=== PATIENT | female | born 1965 | race Caucasian/White ===

== ENCOUNTER → 2018-09-10 | Outpatient (CLI) | payer MEDICARE ==
[~2018-09-10] MED LIST: BACL10TA PO; DIAZ-345 PO; HYDR-2890 PO; IBUP-30 PO; LEVE500T6 PO; NAPR-689 PO; OMEP20CA12 PO; PARO40TA2 PO; PARO40TA47 PO; ROPI1TAB PO; ROPI1TAB2 PO; ROPI1TAB40 PO; TOPI50TA2 PO; TOPI50TA20 PO
--- NOTE | 2018-09-10 12:42 | Diagnostic Imaging Report ---
PROCEDURE: US Non-ob pelvis comp/trans. TECHNIQUE: Multiple realtime grayscale images were obtained of the pelvis in various projections endovaginally. Transabdominal imaging was also performed. INDICATION: Postmenopausal bleeding. The uterus measures 6.6 x 5.7 x 3.1 cm. No myometrial mass is identified. There appears to be abnormal nodularity and thickening in the region of the fundal endometrium measuring up to 13 mm. There is fluid in endometrial canal. Right ovary was not visualized. Left ovary measures 1.9 x 1.7 x 0.9 cm. There is blood flow to left ovary. No free fluid is seen. IMPRESSION: A lobulated echogenic mass in the endometrium with some adjacent endometrial fluid. While this may represent an endometrial polyp, endometrial neoplasm cannot be entirely excluded and endometrial sampling would be recommended. The remainder of the study is unremarkable. Dictated by: Dictated on workstation # [id number]
== END ==
LOC: RAD 10:39
PROVIDERS: ATTEND Obstetrics & Gynecology
DX: N95.0 Postmenopausal bleeding (principal); N85.8 Other specified noninflammatory disorders of uterus; Z78.0 Asymptomatic menopausal state
CPT/HCPCS: 76830; 76856

== ENCOUNTER 2018-09-25 10:22 | Outpatient (CLI) | payer MEDICARE ==
[~2018-09-25] VITALS: Ht 165.1 cm; Wt 89.8 kg
[2018-09-25 10:33] VITALS: BP 133/88
[2018-09-25 10:59] LABS: BASOPHILS % (AUTO) 1 % (0-10); EOSINOPHILS # (AUTO) 0.2 10^3/uL (0.0-0.3); EOSINOPHILS % (AUTO) 2 % (0-10); HEMATOCRIT 40 % (35-52); HEMOGLOBIN 13.8 G/DL (11.5-16.0); LYMPHOCYTES # (AUTO) 1.7 X 10^3 (1.0-4.0); LYMPHOCYTES % (AUTO) 23 % (12-44); MEAN CORPUSCULAR HEMOGLOBIN 31 PG (25-34); MEAN CORPUSCULAR HGB CONC 35 G/DL (32-36); MEAN CORPUSCULAR VOLUME 88 FL (80-99); MEAN PLATELET VOLUME 9.8 FL (7.4-10.4); MONOCYTES # (AUTO) 0.5 X 10^3 (0.0-1.0); MONOCYTES % (AUTO) 7 % (0-12); NEUTROPHILS # (AUTO) 5.2 X 10^3 (1.8-7.8); NEUTROPHILS % (AUTO) 68 % (42-75); PLATELET COUNT 266 10^3/uL (130-400); RED CELL DISTRIBUTION WIDTH 13.4 % (10.0-14.5); WHITE BLOOD COUNT 7.7 10^3/uL (4.3-11.0)
[2018-09-25] MEDS ORDERED: ASPI-808 PO (12:05)
[2018-09-25] MEDS ORDERED: MELO15TA39 PO (12:05)
== END 2018-09-25 11:00 | disposition home or self-care (01) ==
LOC: PREOP 10:22
PROVIDERS: ATTEND Obstetrics & Gynecology
DX: Z01.812 Encounter for preprocedural laboratory examination (principal); Z11.2 Encounter for screening for other bacterial diseases; N95.0 Postmenopausal bleeding
CPT/HCPCS: 36415; 84703; 85025; 87081

== ENCOUNTER → 2018-10-15 | Outpatient (CLI) | payer MEDICARE ==
[~2018-10-15] MED LIST changes: +ASPI-808 PO; +MELO15TA39 PO
== END | disposition home or self-care (01) ==
LOC: PREOP 08:45
PROVIDERS: ATTEND Obstetrics & Gynecology
DX: Z01.818 Encounter for other preprocedural examination (principal)

== ENCOUNTER 2018-10-18 06:05 | Day surgery (SDC) | payer MEDICARE ==
[~2018-10-18] VITALS: Ht 165.1 cm; Wt 89.8 kg
[2018-10-18] VITALS (11 sets, daily range): BP systolic 104–117; BP diastolic 63–82
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
--- OUTSIDE RECORDS SUMMARY | 2018-10-18 06:22 | XMS REPORT | Continuity of Care Document ---
Author Organization Unknown Address Unknown Allergies Active Description Code Type Severity Reaction Onset Reported/Identified Relationship to Patient Clinical Status Yes MORPHINE [id number] DRUG N/A N/A Yes No Known Drug Allergies [id number] N/A N/A Yes No Known Drug Allergies [id number] Drug Allergy Unknown N/A 09/10/2014 Medications There is no data. 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 09/12/2014 FELIPE RAE MD Ot 305.1 TOBACCO USE DISORDER 09/12/2014 FELIPE RAE MD Ot 311 DEPRESSIVE DISORDER NEC 09/12/2014 FELIPE RAE MD Ot 333.94 RESTLESS LEGS SYNDROME 09/12/2014 FELIPE RAE MD Ot 342.90 UNSPEC HEMIPLEGIA HEMIPARESIS UNSPEC S 09/12/2014 FLEIPE RAE MD Ot 345.90 EPILEPSY UNSPEC W/O MENTION INTRACTABLE 09/12/2014 FELIPE RAE MD Ot 346.90 MIGRAINE UNSPECIFIED W/O INTRACT MGRN W/ 09/12/2014 FELIPE RAE MD Ot 438.89 OTH LATE EFFECT-CEREBROVASCULAR DISEASE 09/12/2014 FELIPE RAE MD Ot 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 09/12/2014 FELIPE RAE MD Ot 578.0 09/12/2014 FELIPE RAE MD Ot 714.0 RHEUMATOID ARTHRITIS 09/12/2014 FELIPE RAE MD Ot 716.90 ARTHROPATHY NOS-UNSPEC 09/12/2014 FELIPE RAE MD Ot 784.0 09/12/2014 FELIPE RAE MD Ot 787.01 NAUSEA WITH VOMITING 09/12/2014 KYRA CLAYTON, FELIPE Soares Ot E935.3 09/12/2014 FELIPE RAE MD Ot E935.8 09/12/2014 FELIPE RAE MD Ot V03.82 PROPHYLACTIC VACC AGAINST STREPTOCOCCUS 09/12/2014 FELIPE RAE MD Ot V45.01 CARDIAC PACEMAKER IN SITU 03/27/2015 PILO, KIMBERLY S A 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 03/27/2015 PILOVANDANAIS S D [id number] Nicotine dependence, cigarettes, uncomplicated 03/27/2015 PILO KIMBERLY S D F3181 Bipolar II disorder 03/27/2015 PILO, KIMBERLY S D F411 Generalized anxiety disorder 03/27/2015 PILO, KIMBERLY S D M1990 Unspecified osteoarthritis, unspecified site 03/27/2015 PILO, KIMBERLY S D R1031 Right lower quadrant pain 03/27/2015 PILOVANDANA ARGUETAIS S Rodger Z8673 Prsnl hx of TIA (TIA), and cereb infrc w/o resid deficits 03/27/2015 PIOLVANDANA ARGUETAIS S D Z950 Presence of cardiac pacemaker 09/26/2018 JUJU GOMEZ DO Ot N95.0 POSTMENOPAUSAL BLEEDING 09/26/2018 JUJU GOMEZ DO Ot Z01.812 ENCOUNTER FOR PREPROCEDURAL LABORATORY E 09/26/2018 JUJU GOMEZ DO Ot Z11.2 ENCOUNTER FOR SCREENING FOR OTHER BACTER 10/04/2018 JUJU GOMEZ DO Ot N85.8 OTHER SPECIFIED NONINFLAMMATORY DISORDER 10/04/2018 JUJU GOMEZ DO Ot N95.0 POSTMENOPAUSAL BLEEDING 10/04/2018 JUJU GOMEZ DO Ot Z78.0 ASYMPTOMATIC MENOPAUSAL STATE 10/10/2018 JUJU GOMEZ DO Ot N85.8 OTHER SPECIFIED NONINFLAMMATORY DISORDER 10/10/2018 JUJU GOMEZ DO Ot N95.0 POSTMENOPAUSAL BLEEDING 10/10/2018 JUJU GOMEZ DO Ot Z78.0 ASYMPTOMATIC MENOPAUSAL STATE Procedures Code Description Performed By Performed On 45.16 ESOPHAGOGASTRODUODENOSCOPY [ EGD] W/CLOSE 09/12/2014 Results Test Result Range Methicillin resistant Staphylococcus aureus (MRSA) screening culture - 10:41 Methicillin resistant Staphylococcus aureus (MRSA) screening culture NEG NRG Complete blood count (CBC) with automated white blood cell (WBC) differential - 09/25/18 10:45 Blood leukocytes automated count (number/volume) 7.7 10*3/uL 4.3-11.0 Blood erythrocytes automated count (number/volume) 4.50 10*6/uL 4.35-5.85 Venous blood hemoglobin measurement (mass/volume) 13.8 g/dL 11.5-16.0 Blood hematocrit (volume fraction) 40 % 35-52 Automated erythrocyte mean corpuscular volume 88 [foz_us] 80-99 Automated erythrocyte mean corpuscular hemoglobin (mass per erythrocyte) 31 pg 25-34 Automated erythrocyte mean corpuscular hemoglobin concentration measurement ( mass/volume) 35 g/dL 32-36 Automated erythrocyte distribution width ratio 13.4 % 10.0-14.5 Automated blood platelet count (count/volume) 266 10*3/uL 130-400 Automated blood platelet mean volume measurement 9.8 [foz_us] 7.4-10.4 Automated blood neutrophils/100 leukocytes 68 % 42-75 Automated blood lymphocytes/100 leukocytes 23 % 12-44 Blood monocytes/100 leukocytes 7 % 0-12 Automated blood eosinophils/100 leukocytes 2 % 0-10 Automated blood basophils/100 leukocytes 1 % 0-10 Blood neutrophils automated count (number/volume) 5.2 10*3 1.8-7.8 Blood lymphocytes automated count (number/volume) 1.7 10*3 1.0-4.0 Blood monocytes automated count (number/volume) 0.5 10*3 0.0-1.0 Automated eosinophil count 0.2 10*3/uL 0.0-0.3 Automated blood basophil count (count/volume) 0.0 10*3/uL 0.0-0.1 Blood type T Indirect antibody screen panel - 09/25/18 10:45 ABO+Rh group AP NRG Transfusion band number [id number] NRG Blood group antibody screen NEGATIVE NRG Urine beta human chorionic gonadotropin (hCG) measurement - 09/25/18 10:48 Urine beta human chorionic gonadotropin (hCG) measurement NEGATIVE NEGATIVE Encounters ACCT No. Visit Date/Time Discharge Status Pt. Type Provider Facility Loc./Unit Complaint [id number] 04/26/2018 12:26:58 04/26/2018 23:59:59 CLS Outpatient Gerardo Davis [id number] 09/27/2018 10:30:00 09/27/2018 23:59:59 CLS Preadmit JUJU GOMEZ DO [facility] SDC POSTMENOPAUSAL BLEEDING, THICKENED ENDOMETRIUM [id number] 09/25/2018 10:22:00 09/25/2018 11:00:00 DIS Outpatient JUJU GOMEZ DO [facility] PREOP D C, HYSTEROSCOPY [id number] 09/10/2018 10:39:00 09/10/2018 23:59:59 CLS Outpatient JUJU GOMEZ DO [facility] RAD POSTMENOPAUSAL BLEEDING [id number] 09/11/2014 01:27:00 09/12/2014 15:45:00 DIS Inpatient KYRA CLAYTON, FELPIE Soares [facility] ICU RECURRENT SEIZURES,UPPER GI BLEED,N/V [id number] 03/14/2015 10:13:00 03/19/2015 18:28:05 DIS Inpatient KIMBERLY DAIGLE [facility] [id number] 03/15/2018 08:29:19 Document Registration [id number] 03/12/2018 04:16:47 Document Registration [id number] 02/15/2018 07:55:09 Document Registration
[2018-10-18] MEDS: LACTATED RINGERS 1,000 ML IV PRN ×2 (06:25→07:47)
[2018-10-18] MEDS ORDERED: LACTATED RINGERS 1,000 ML IV PRN (06:34)
[2018-10-18] MEDS ORDERED: proPOfol 200 MG/20 ML (DIPRIVAN) VIAL IV ONE (06:51)
[2018-10-18] MEDS ORDERED: ONDANSETRON 4 MG/2 ML (SDV) Z0FRAN ONE (06:51)
[2018-10-18] MEDS ORDERED: fentaNYL INJECTION 100 MCG/2 ML AMP ONE (06:51)
[2018-10-18] MEDS ORDERED: DEXAMETHASONE 10 MG/ML (DECADRON) 1 ML VIAL ONE (06:51)
[2018-10-18] MEDS ORDERED: LIDOCAINE PF 2% 5 ML (XYLOCAINE) VIAL ONE (06:51)
[2018-10-18] MEDS ORDERED: SEVOFLURANE (ULTANE) 15 ML INHAL SOLN ONE ×3 (06:51→08:00)
[2018-10-18] MEDS ORDERED: MIDAZOLAM 2 MG/2 ML (VERSED) VIAL ONE (06:52)
[2018-10-18] MEDS ORDERED: BUPIVACAINE 0.25% 30 ML (SENSORCAINE) VIAL ONE (07:03)
--- NOTE | 2018-10-18 07:07 | Progress Note-Pre Operative ---
Pre-Operative Progress Note H&P Reviewed The H&P was reviewed, patient examined and no changes noted. Date Seen by Provider: October 18, 2018 Time Seen by Provider: 07:00 Date H&P Reviewed: October 18, 2018 Time H&P Reviewed: 07:00 Pre-Operative Diagnosis: Postmenopausal bleeding JUJU GOMEZ DO October 18, 2018 07:07
--- NOTE | 2018-10-18 07:12 | Discharge Inst-Women's Service ---
Discharge Inst-Women's Serv Depart Medication/Instructions New, Converted or Re-Newed RX: RX on Chart Consults/Follow Up Additional Follow Up: Yes Orders/Referrals Dr. Gomez in 3 weeks Activity Activity: Activity as Tolerated Driving Instructions: You May Drive NO SMOKING: NO SMOKING Nothing Inside Vagina: No Douching, No Kingsley, No Tampons Diet Discharge Diet: No Restrictions Symptoms to Report to : Bleeding Excessive, Pain Increased, Fever Over 101 Degrees F, Vaginal Bleeding Increase, Questions/Concerns For Any Problems or Questions: Contact Your Physician JUJU GOMEZ DO October 18, 2018 07:12
[2018-10-18] MEDS ORDERED: PHENYLEPHRINE 100 MCG/ML 10 ML (ANESTHESIA) SYR ONE (07:37)
[2018-10-18] MEDS ORDERED: HYDROmorphone 2 MG/ML VIAL (DILAUDID) IV ONE (08:00)
[2018-10-18] MEDS ORDERED: ONDANSETRON 4 MG/2 ML (SDV) Z0FRAN IVP PRN (08:00)
--- NOTE | 2018-10-18 12:08 | Anesthesia-General Post-Op ---
General Patient Condition Mental Status/LOC: Same as Preop Cardiovascular: Satisfactory Nausea/Vomiting: Absent Respiratory: Satisfactory Pain: Controlled Complications: Absent Post Op Complications Complications None Follow Up Care/Instructions Patient Instructions None needed. Anesthesia/Patient Condition Patient Condition Patient is doing well, no complaints, stable vital signs, no apparent adverse anesthesia problems. No complications reported per nursing. TED FORREST CRNA October 18, 2018 12:08
--- NOTE | 2018-10-18 14:26 | OPERATIVE REPORT ---
DATE OF SERVICE: PREOPERATIVE DIAGNOSIS: A 53-year-old female with postmenopausal bleeding. POSTOPERATIVE DIAGNOSIS: A 53-year-old female with postmenopausal bleeding. PROCEDURE: D and C hysteroscopy. SURGEON: Ronnell Gant DO ANESTHESIA: General endotracheal. ESTIMATED BLOOD LOSS: Minimal. URINE OUTPUT: 75 mL clear drained at the start of the procedure. FLUIDS: 1 liter of lactated Ringer's solution. FINDINGS: An atrophic appearing vulva and vaginal mucosa as well as a cervical stenosis grossly normal appearing atrophic endometrial cavity with a small to moderate amount of fluffy endometrial tissue. SPECIMENS SENT: Endometrial curettings. INDICATIONS FOR PROCEDURE: This 53-year-old female is a patient that was in consultation in my office for endometrial thickening and postmenopausal bleeding. The patient had a pretty significant bleed last week, which initiated the plan of care to perform D and C, both for diagnostic and hopefully curative purposes. Risks of the procedure were discussed with the patient in the office including postoperative expectations, risks of bleeding, infection, damage to surrounding structures, risk from anesthesia. After everything was discussed with the patient, all of her questions were answered, consent was obtained in the preoperative area and the patient was taken to the operating room. OPERATIVE REPORT IN DETAIL: Once in the operating room, general anesthesia was found to be adequate, placed in dorsal lithotomy position, prepped and draped in normal sterile fashion. A timeout was performed. Straight catheterization was performed. A weighted speculum was inserted in the patient's vagina. A right angle retractor was used to visualize the cervix, which was grasped at 12 o'clock position using a long Allis clamp. I then have to make cruciate incision at the cervical os due to stenosis to allow me to sound and then able to easily pass the uterine sound to depth of approximately 7 cm, at which point I gently dilated the cervix using hanks dilators to a maximum dilatation of about 8 mm, at which point I directed a hysteroscope using the true clear fluid management system and normal saline as my visual medium. I am able to advance my hysteroscope into the endometrial cavity. There are no gross abnormalities of the endometrial wall. There is some fluffy endometrial tissue, but no submucosal abnormality. I then removed the hysteroscope and proceed with curetting in a gentle fashion, curetting all joe of the endometrial cavity and collected this and sent as endometrial curettings, after which an active bleeding noted from my dissection plane. The paracervical block was performed at 3 and 9 o'clock position using 0.5% Marcaine, 5 mL are injected into each site. Care was taken to aspirate before injecting. After this was done, all instruments were removed from the patient's vagina. The patient tolerated the procedure well and sent to recovery area in stable condition. Job ID: [id number] DocumentID: [id number] Dictated Date: 10/18/2018 09:46:58 Alarm Technician Date: 10/18/2018 14:25:36 Dictated By: DO PA MAHMOOD
== END 2018-10-18 10:10 | disposition home or self-care (01) ==
LOC: SDC 06:05
PROVIDERS: ATTEND Obstetrics & Gynecology
DX: C54.1 Malignant neoplasm of endometrium (principal); N95.0 Postmenopausal bleeding; N95.2 Postmenopausal atrophic vaginitis; N88.2 Stricture and stenosis of cervix uteri; I49.5 Sick sinus syndrome; F17.210 Nicotine dependence, cigarettes, uncomplicated; R56.9 Unspecified convulsions; I69.354 Hemiplegia and hemiparesis following cerebral infarction affecting left non-dominant side; M06.9 Rheumatoid arthritis, unspecified; F32.9 Major depressive disorder, single episode, unspecified; K21.9 Gastro-esophageal reflux disease without esophagitis; G57.92 Unspecified mononeuropathy of left lower limb; Z79.82 Long term (current) use of aspirin; Z79.899 Other long term (current) drug therapy; Z95.0 Presence of cardiac pacemaker
CPT/HCPCS: 36415; 84703; 86850; 86900; 86901; 94664

== ENCOUNTER → 2018-11-07 | Outpatient (CLI) | payer MEDICARE ==
[~2018-11-07] VITALS: Ht 165.1 cm; Wt 88.5 kg
[~2018-11-07] MED LIST changes: +CATHETER FLUSH 10 ML SYR IV PRN; +REGADENOSON 0.4 MG/5 ML SYR (LEXISCAN) IV ONE
--- NOTE | 2018-11-07 19:58 | STRESS TEST ---
DATE OF SERVICE: 11/07/2018 LEXISCAN MYOVIEW STRESS TEST REPORT REFERRING PHYSICIAN: Kirk Ibarra MD. Baseline heart rate is 63. Baseline blood pressure is 141/81. Baseline EKG is sinus rhythm with no ischemic changes. In summary, the patient was injected with 10.65 mCi of technetium-99 Myoview and the resting images were obtained. Then, the patient received 0.4 mg of Lexiscan followed by 28.3 mCi of technetium-99 Myoview. Throughout the test, there were no EKG changes. The resting and stress images were reviewed and compared in the short axis, horizontal long axis, and vertical long axis views. Review of the images showed increased intestinal uptake with motion artifact affecting the quality of the images. There is mild reversible ischemia involving the mid to apical inferior wall. SSS is 6, SDS 3, TID value 1.01. On the gated images, the left ventricle appeared to be normal size with normal contractility. Calculated ejection fraction is 50%. CONCLUSION: 1. The patient tolerated Lexiscan well. 2. Motion artifact with increased intestinal uptake affecting the quality of the images with questionable ischemia involving the mid to apical inferior wall. 3. Normal left ventricular size with normal contractility. Calculated ejection fraction is 50%. Job ID: [id number] DocumentID: [id number] Dictated Date: 11/07/2018 16:29:34 Dry Wall Installer Date: 11/07/2018 19:57:59 Dictated By: KIRK IBARRA MD
== END ==
LOC: CARD 11:18
PROVIDERS: ATTEND Internal Medicine Cardiovascular Disease
DX: I49.5 Sick sinus syndrome (principal); Z72.0 Tobacco use; Z95.0 Presence of cardiac pacemaker
CPT/HCPCS: 78452; 93017; 93306

== ENCOUNTER → 2018-12-19 | Outpatient (CLI) | payer MEDICARE ==
[~2018-12-19] MED LIST changes: -CATHETER FLUSH 10 ML SYR IV PRN; -REGADENOSON 0.4 MG/5 ML SYR (LEXISCAN) IV ONE
--- NOTE | 2018-12-19 13:04 | Diagnostic Imaging Report ---
PROCEDURE: CT pelvis without contrast. TECHNIQUE: Multiple contiguous axial images were obtained through the pelvis without the use of intravenous contrast. Sagittal and coronal reformations were performed. Auto Exposure Controls were utilized during the CT exam to meet ALARA standards for radiation dose reduction. INDICATION: Pelvic pain and lower abdominal pain. Hysterectomy on 11/28/2018. Nausea, vomiting, diarrhea. COMPARISON: None. FINDINGS: No acute fracture is seen in the pelvis. Alignment appears normal. There are mild degenerative changes in the bilateral sacroiliac joints and bilateral hips. There are fluid-filled loops of small bowel which are not distended. There is extensive diverticulosis in the sigmoid colon. There is borderline wall thickening in the sigmoid colon which appears most likely due to decompression. There is significant fat stranding and a small amount of free fluid in the pelvis. No significant free air is seen. There are small pockets of fluid to the right of the rectosigmoid junction, measuring up to 1.2 x 2.5 cm in size. There is calcific atherosclerosis. No definite lymphadenopathy is seen. IMPRESSION: 1. Edema and fluid in the pelvis, may be due to postoperative changes. There are very small fluid pockets to the right of the rectosigmoid junction but no drainable fluid collection is seen on this noncontrast exam. 2. Colonic diverticulosis. Thickening of the wall of the colon is thought to be due to decompression reactive changes rather than diverticulitis or colitis. Dictated by: Dictated on workstation # [id number]
== END ==
LOC: RAD 11:51
PROVIDERS: ATTEND Nurse Practitioner Family
DX: K57.30 Diverticulosis of large intestine without perforation or abscess without bleeding (principal); Z90.710 Acquired absence of both cervix and uterus
CPT/HCPCS: 72192

== ENCOUNTER 2019-01-30 07:53 | Day surgery (SDC) | payer MEDICARE ==
[2019-01-30] VITALS (7 sets, daily range): BP systolic 119–161; BP diastolic 71–86
[~2019-01-30] VITALS: Ht 165.1 cm; Wt 88.5 kg
[2019-01-30] MEDS ORDERED: LIDOCAINE 1% INJ 20 ML 20 ML VIAL ONE (08:25)
[2019-01-30] MEDS ORDERED: HEParin (CATH LAB) 2,000 ML IV ONE (08:25)
[2019-01-30] MEDS ORDERED: NS IV 1000 ML 1,000 ML ONE (08:25)
[2019-01-30] MEDS ORDERED: NS IV 1000 ML 1,000 ML IV SCH ×2 (08:39→11:24)
[2019-01-30 08:56] LABS: HEMOGLOBIN 12.2 G/DL (11.5-16.0); MEAN PLATELET VOLUME 9.5 FL (7.4-10.4); RED CELL DISTRIBUTION WIDTH 14.2 % (10.0-14.5); WHITE BLOOD COUNT 5.6 10^3/uL (4.3-11.0)
[2019-01-30] MEDS ORDERED: CHOL20002 PO (08:57)
[2019-01-30] MEDS ORDERED: MULT-192 PO (08:57)
[2019-01-30] MEDS ORDERED: METO-387 PO (08:57)
[2019-01-30] MEDS ORDERED: PANT40TA3 PO (08:57)
--- NOTE | 2019-01-30 08:58 | NUR ---
SPOKE WITH PATIENT WELL GOING THRU THE EXT MED HISTORY AND THE MED LIST FROM THE OFFICE TO COMPLETE THE MED REC. OTC MEDS: ASPIRIN 325M DAILY VITAMIN D: 1 DAILY MULTIVITAMIN GUMMY: 1 DAILY MED LIST FROM THE DR'S OFFICE SAID LOVENOX WAS A CURRENT MED, HOWEVER THE PT SAYS THIS IS NOT TRUE AND HAS NOT TAKEN THAT FOR QUITE A WHILE.
[2019-01-30 09:17] LABS: INR 0.9 (0.8-1.4); PROTHROMBIN TIME PATIENT 12.6 SEC (12.2-14.7)
[2019-01-30 09:18] LABS: ALANINE AMINOTRANSFERASE 20 U/L (0-55); ALBUMIN 3.9 GM/DL (3.2-4.5); ALKALINE PHOSPHATASE 67 U/L (40-136); BILIRUBIN,TOTAL 0.5 MG/DL (0.1-1.0); BUN/CREATININE RATIO 22; CALCIUM 9.2 MG/DL (8.5-10.1); CARBON DIOXIDE 25 MMOL/L (21-32); CHLORIDE 108 MMOL/L (98-107); CHOLESTEROL 225 MG/DL (< 200); CREATININE SERUM 0.76 MG/DL (0.60-1.30); GFR ESTIMATED > 60; GLUCOSE 111 MG/DL (70-105); HDL CHOLESTEROL 46 MG/DL (40-60); POTASSIUM 3.8 MMOL/L (3.6-5.0); SODIUM 142 MMOL/L (135-145); TOTAL PROTEIN 6.7 GM/DL (6.4-8.2); TRIGLYCERIDES 217 MG/DL (<150); VLDL CHOLESTEROL 43 MG/DL (5-40)
--- NOTE | 2019-01-30 09:19 | Diagnostic Imaging Report ---
INDICATION: Pre-heart catheterization. TIME OF EXAM: 9:08 AM Correlation is made with prior study 09/10/2014. FINDINGS: The heart size is stable. Cardiac pacemaker remains in place. Lungs are clear. The pulmonary vascularity is normal. No infiltrate, effusion or pneumothorax is seen. IMPRESSION: No acute cardiopulmonary process is detected. Dictated by: Dictated on workstation # [id number]
[2019-01-30] MEDS ORDERED: VERAPAMIL 5 MG/2 ML (CALAN) VIAL IV ONE (10:30)
[2019-01-30] MEDS ORDERED: fentaNYL INJECTION 100 MCG/2 ML AMP ONE (10:30)
[2019-01-30] MEDS ORDERED: MIDAZOLAM 5 MG/5 ML (VERSED) VIAL ONE (10:30)
[2019-01-30] MEDS ORDERED: HEParin 1000 UNIT/ML (10ML VIAL) FOR BOLUS ONE (10:31)
[2019-01-30] MEDS ORDERED: NITRO DRIP 25000 MCG/D5W 250 ML IV ONE (10:31)
--- NOTE | 2019-01-30 10:40 | Cardiac Procedure Note-CS/ASA ---
Pre-Procedure Note Pre-Op Procedure Note H&P Reviewed The H&P was reviewed, patient examined and no changes noted. Date H&P Reviewed: Jan 30, 2019 Time H&P Reviewed: 10:39 Conscious Sedation Pre-Proced Time 10:39 ASA Score 3 For ASA 3 and 4: Consider anesthesia and medical clearance. Also, for patients with a history of failed moderate sedation consider anesthesia. Airway Lungs Heart ASA score ASA 1: a normal healthy patient ASA 2: a patient with a mild systemic disease (mid diabetes, controlled hypertension, obesity x ASA 3: a patient with a severe systemic disease that limits activity (angina, COPD, prior Myocardial infarction) ASA 4: a patient with an incapacitating disease that is a constant threat to life (CHF, renal failure) ASA 5: a moribund patient not expected to survive 24 hrs. (ruptured aneurysm) ASA 6: a declared brain- patient whose organs are being harvested. For emergent operations, add the letter E after the classification Mallampati Classification Grade 3 Sedation Plan Analgesia, Amnesia, Plan communicated to team members, Discussed options with patient/fam, Discussed risks with patient/fam The patient is an appropriate candidate to undergo the planned procedure, sedation, and anesthesia. The patient immediately re-assessed prior to indication. KIRK DANG MD Jan 30, 2019 10:40
[2019-01-30] MEDS ORDERED: NS IV 1000 ML 1,000 ML IV ONE (11:15)
[2019-01-30] MEDS ORDERED: ATOR10TA PO (11:26)
--- NOTE | 2019-01-30 11:27 | Discharge Inst-Post CATH ---
Discharge Inst-CATH/EP Problems Reviewed?: Yes Post Cardiac Cath/EP D/C Inst Follow Up/Plan Appointment with Dr. Ibarra's office in 2-4 weeks <b>CARDIAC CATH/EP PROCEDURE DISCHARGE INSTRUCTIONS</b> ACTIVITY * Go Home directly and rest. * Limit activity of the leg (or wrist if it was used) for 7 days including aerob ics, swimming, jogging, bicycling, etc. * Restrict stair-climbing for 7 days if possible, if not, climb up with your non-cath leg, then bring together on the same step. * Avoid lifting, pushing, pulling or excessive movement of the affected extremity for 7 days. * Customary sexual activity may be resumed after 2 days-use caution not to use a position that strains or causes pain to the affected extremity. * No driving for 24 hours. * NO SMOKING. * Avoid straining for bowel movements for 7 days. * Gentle walking on level ground is allowed. * Returning to work will depend on the type of procedure and the results. Your doctor will discuss this with you. CALL YOUR DOCTOR FOR ANY OF THE FOLLOWING: *If bleeding from the puncture site occurs- Apply gentle pressure to site with clean cloth and call your doctor or EMS. * If a knot or lump forms under the skin, increases in size, or causes pain. * If bruising appears to be worsening or moving further down your leg instead of disappearing. * Temperature above 101 F. CARE OF YOUR GROIN INCISION; * Bruising or purple discoloration of the skin near the puncture site is common. * You may shower only, no bathtub bathing for 5 days. Be careful to avoid slipping as your leg may feel stiff. * If a closure device was used on your femoral artery, please see the attached guide regarding care of the device and your leg. * Leave dressing on FOR 24 hours. CARE OF YOUR WRIST INCISION; * Bruising or purple discoloration of the skin near the puncture site is common. * You may shower. * DO NOT submerge wrist. * Leave dressing on FOR 24 hours. KIRK IBARRA MD Jan 30, 2019 11:27
--- NOTE | 2019-01-30 11:32 | Cardiac Cath Report ---
Cardiac Cath Report Physician (s)/Value Analysis Coordinator (s) Physician KIRK DANG MD Pre-Procedure Diagnosis Pre-Procedure Diagnosis: coronary artery disease Post-Procedure Note Procedure Start Date: Jan 30, 2019 Name of Procedure: Left heart catheterization Findings/Procedure Note PROCEDURE NOTE: 53 years old lady with history of permanent pacemaker, dual-chamber, had an abnormal stress test with anterior wall ischemia, scheduled for cardiac catheterization possible PTCA. After explaining the procedure to the patient, all pros and cons were explained, all questions were answered. The patient signed the consent and then she was placed on the cardiac catheterization laboratory. Groin was prepped SL fashion l ocal anesthesia was used. Sheath placed in the right radial artery, Hyder catheter was used to access the left ventricular cavity, advanced and left ventriculogram was done, we'll be to aorta was done, advanced to the left coronary system and left coronary angiogram was done then turned to the right carotid system and right coronary and 2 g was done at the end of the procedure sheath was removed vascular band was used At the end of the procedure the sheath was removed. Closure device FINDINGS: Hemodynamics LV 103/13, end-diastolic pressure of 13 Aorta 97/65 mean of 78 ANATOMY: Left Main is free of obstructive disease Left Anterior Descending has mild disease nonobstructive disease Left Circumflex has no significant obstructive disease Right Coronory Artery has no significant obstructive disease LV Gram was done showing normal left ventricular size and systolic function estimated ejection fraction 60 percent CONCLUSION: 1. Mild coronary artery disease obstructive disease 2. Normal left ventricular size and systolic function estimated ejection fraction 60 percent DISCUSSION AND RECOMMENDATION: stress test is abnormal probably due to underlying paced rhythm. No significant obstructive disease, patient was noted to have hyperlipidemia and started on Lipitor Anesthesia Type: Conscious Sedation Estimated blood loss (mL): 5 ml Contrast Amount: 36 ml Total Radiation Dose: 254 mGy Post-Procedure Diagnosis Post-operative diagnosis: Coronary artery disease Permanent pacemaker Hyperlipidemia KIRK DANG MD Jan 30, 2019 11:32
== END 2019-01-30 14:15 | disposition home or self-care (01) ==
LOC: CATH 07:53
PROVIDERS: ATTEND Internal Medicine Cardiovascular Disease
DX: I25.10 Atherosclerotic heart disease of native coronary artery without angina pectoris (principal); I10 Essential (primary) hypertension; E78.5 Hyperlipidemia, unspecified; Z79.82 Long term (current) use of aspirin; Z79.899 Other long term (current) drug therapy; Z95.0 Presence of cardiac pacemaker
CPT/HCPCS: 36415; 71045; 80053; 80061; 85027; 85610; 85730; 87081; 93458

== ENCOUNTER 2021-01-27 08:45 | Inpatient (IN) | payer MEDICARE ==
[~2021-01-27] VITALS: Ht 165 cm; Wt 83.0 kg
[~2021-01-27 08:45] MED LIST changes: +ATOR10TA PO; +CHOL20002 PO; +MTP25TSR PO; +MULT-192 PO; +PANT40TA52 PO
[2021-01-27] MEDS ORDERED: RT-ALBUTEROL HFA 8.5 GM INHALER IH STA (09:05)
[2021-01-27] MEDS ORDERED: ONDANSETRON 4 MG/2 ML (SDV) Z0FRAN IVP ONE (09:15)
[2021-01-27] MEDS ORDERED: FAMOTIDINE 20MG/2ML IV (PEPCID) IVP ONE (09:15)
[2021-01-27 09:19] LABS: BASOPHILS % (AUTO) 0 % (0-10); EOSINOPHILS % (AUTO) 0 % (0-10); HEMATOCRIT 44 % (35-52); LYMPHOCYTES # (AUTO) 0.8 10^3/uL (1.0-4.0); LYMPHOCYTES % (AUTO) 9 % (12-44); MEAN CORPUSCULAR HEMOGLOBIN 30 pg (25-34); MEAN CORPUSCULAR HGB CONC 34 g/dL (32-36); MEAN CORPUSCULAR VOLUME 86 fL (80-99); MEAN PLATELET VOLUME 10.8 fL (9.0-12.2); MONOCYTES # (AUTO) 0.7 10^3/uL (0.0-1.0); MONOCYTES % (AUTO) 8 % (0-12); NEUTROPHILS % (AUTO) 83 % (42-75); PLATELET COUNT 176 10^3/uL (130-400); WHITE BLOOD COUNT 9.6 10^3/uL (4.3-11.0)
[2021-01-27 09:31] LABS: ALBUMIN 3.7 GM/DL (3.2-4.5); POTASSIUM 4.6 MMOL/L (3.6-5.0)
[2021-01-27 09:33] LABS: CALCIUM 9.1 MG/DL (8.5-10.1)
[2021-01-27 09:34] LABS: TOTAL PROTEIN 7.3 GM/DL (6.4-8.2)
[2021-01-27 09:35] LABS: BILIRUBIN,TOTAL 0.4 MG/DL (0.1-1.0)
[2021-01-27 09:37] LABS: CREATININE SERUM 1.55 MG/DL (0.60-1.30)
[2021-01-27] MEDS ORDERED: ENOXAPARIN 80 MG/0.8 ML (LOVENOX) SYR SC ONE (10:15)
--- NOTE | 2021-01-27 10:33 | ED General ---
General Chief Complaint: Cough/Cold/Flu Symptoms Stated Complaint: COVID+ Nursing Triage Note: ARRIVED VIA EMS FROM HOME. DAY 9 OF COVID. HAS BEEN ON A STEROID AND Z-PACK X2 DAYS. TODAY COMPLAINS OF N/V, SOA. Source of Information: Patient Exam Limitations: No Limitations History of Present Illness Date Seen by Provider: Jan 27, 2021 Time Seen by Provider: 08:47 Initial Comments This 55-year-old woman who presents to the emergency room with progressive symptoms of COVID-19 infection. She has been ill for about 9 days. She tested positive last . She has been struggling with significant vomiting and diarrhea. She feels dehydrated and weak. She reports she is not able to safely stand on her own at this time. She used to the drive-through testing site in [place] and was prescribed dexamethasone and a azithromycin by the supervising physician. She is notably wheezing on assessment. She reports pleuritic chest pain and mild shortness of air. Allergies and Home Medications Allergies Coded Allergies: No Known Drug Allergies (Unverified , 09/10/14) Home Medications Aspirin 325 Mg Tablet.dr, 325 MG PO DAILY, (Reported) Last Action: Reviewed Azithromycin 500 Mg Tablet, 500 MG PO DAILY, (Reported) FILLED 01-26-2021 #10/10 DAY SUPPLY Last Action: Reviewed Dexamethasone 2 Mg Tablet, 2 MG PO TID, (Reported) FILLED 01-26-2021 #30 Last Action: Reviewed Patient Home Medication List Home Medication List Reviewed: Yes Review of Systems Review of Systems Constitutional: see HPI, weakness EENTM: no symptoms reported Respiratory: see HPI Cardiovascular: no symptoms reported Gastrointestinal: see HPI Genitourinary: no symptoms reported : No Musculoskeletal: no symptoms reported Skin: no symptoms reported Psychiatric/Neurological: No Symptoms Reported Hematologic/Lymphatic: No Symptoms Reported Immunological/Allergic: no symptoms reported Past Gvlvnyz-Rhhnsp-Zhsvzx Hx Patient Social History Tobacco Use?: Yes Tobacco type used: Cigarettes Smoking Status: Current Everyday Smoker Substance use?: No Alcohol Use?: No Pt feels they are or have been: No Immunizations Up To Date Tetanus Booster (TDap): Unknown PED Vaccines UTD: No Seasonal Allergies Seasonal Allergies: Yes Past Medical History Surgeries: Yes Appendectomy, Section, Hysterectomy Respiratory: No Currently Using CPAP: No Currently Using BIPAP: No Cardiac: Yes High Cholesterol, Hypertension, Irregular Heartbeat Neurological: Yes Stroke Genitourinary: No Gastrointestinal: No Musculoskeletal: Yes Arthritis, Rheumatoid Arthritis Endocrine: No HEENT: Yes (glasses, dentures) Cancer: Yes Uterine Did You Recieve Any Treatments: Yes What Type of Treatment Did You: Surgical Intervention Psychosocial: Yes Sleep Difficulties, Depression Integumentary: No Blood Disorders: No Adverse Reaction/Blood Tranf: No Family Medical History No Pertinent Family Hx Physical Exam Vital Signs Vital Signs - First Documented 01/27/21 08:45 Temp 35.6 Pulse 93 Resp 16 B/P (MAP) 134/90 (105) Pulse Ox 98 O2 Delivery Nasal Cannula Capillary Refill : Less Than 3 Seconds Height, Weight, BMI Height: 5'5.00" Weight: 195lbs. 0.0oz. 88.422386xo; 30.00 BMI Method:Stated General Appearance: WD/WN, Mild Distress HEENT: PERRL/EOMI, Normal ENT Inspection, Other (Oropharynx somewhat dry) Neck: Normal Inspection Respiratory: No Accessory Muscle Use, No Respiratory Distress, Decreased Breath Sounds, Wheezing Cardiovascular: Regular Rate, Rhythm, No Edema, No Murmur Gastrointestinal: Normal Bowel Sounds, Non Tender, Soft Extremity: Normal Inspection, No Pedal Edema Neurologic/Psychiatric: Alert, Oriented x3, No Motor/Sensory Deficits, Normal Mood/Affect, coater slate II-XII Norm as Tested Skin: Normal Color, Warm/Dry Focused Exam Lactate Level 01/27/21 08:55: Lactic Acid Level 1.68 Lactic Acid Level Laboratory Tests Test 01/27/21 08:55 Lactic Acid Level 1.68 MMOL/L (0.50-2.00) Progress/Results/Core Measures Suspected Sepsis SIRS Temperature: Pulse: 93 Respiratory Rate: 16 Laboratory Tests 01/27/21 08:55: White Blood Count 9.6 Blood Pressure 134 /90 Mean: 105 01/27/21 08:55: Lactic Acid Level 1.68 Laboratory Tests 01/27/21 08:55: Creatinine 1.55H, Platelet Count 176, Total Bilirubin 0.4 Results/Orders Lab Results Laboratory Tests Test 01/27/21 08:55 Range/Units White Blood Count 9.6 4.3-11.0 10^3/uL Red Blood Count 5.07 3.80-5.11 10^6/uL Hemoglobin 15.0 11.5-16.0 g/dL Hematocrit 44 35-52 % Mean Corpuscular Volume 86 80-99 fL Mean Corpuscular Hemoglobin 30 25-34 pg Mean Corpuscular Hemoglobin Concent 34 32-36 g/dL Red Cell Distribution Width 12.9 10.0-14.5 % Platelet Count 176 130-400 10^3/uL Mean Platelet Volume 10.8 9.0-12.2 fL Immature Granulocyte % (Auto) 0 % Neutrophils (%) (Auto) 83 H 42-75 % Lymphocytes (%) (Auto) 9 L 12-44 % Monocytes (%) (Auto) 8 0-12 % Eosinophils (%) (Auto) 0 0-10 % Basophils (%) (Auto) 0 0-10 % Neutrophils # (Auto) 8.0 H 1.8-7.8 10^3/uL Lymphocytes # (Auto) 0.8 L 1.0-4.0 10^3/uL Monocytes # (Auto) 0.7 0.0-1.0 10^3/uL Eosinophils # (Auto) 0.0 0.0-0.3 10^3/uL Basophils # (Auto) 0.0 0.0-0.1 10^3/uL Immature Granulocyte # (Auto) 0.0 0.0-0.1 10^3/uL D-Dimer 0.73 H 0.00-0.49 UG/ML Sodium Level 137 135-145 MMOL/L Potassium Level 4.6 3.6-5.0 MMOL/L Chloride Level 102 98-107 MMOL/L Carbon Dioxide Level 20 L 21-32 MMOL/L Anion Gap 15 H 5-14 MMOL/L Blood Urea Nitrogen 39 H 7-18 MG/DL Creatinine 1.55 H 0.60-1.30 MG/DL Estimat Glomerular Filtration Rate 35 BUN/Creatinine Ratio 25 Glucose Level 129 H 70-105 MG/DL Lactic Acid Level 1.68 0.50-2.00 MMOL/L Calcium Level 9.1 8.5-10.1 MG/DL Corrected Calcium 9.3 8.5-10.1 MG/DL Total Bilirubin 0.4 0.1-1.0 MG/DL Aspartate Amino Transf (AST/SGOT) 32 5-34 U/L Alanine Aminotransferase (ALT/SGPT) 23 0-55 U/L Alkaline Phosphatase 83 40-136 U/L C-Reactive Protein High Sensitivity 1.95 H 0.00-0.50 MG/DL Total Protein 7.3 6.4-8.2 GM/DL Albumin 3.7 3.2-4.5 GM/DL Procalcitonin 0.09 <0.10 NG/ML My Orders Orders - MARCO A STONER MD Albuterol Inhaler (Albuterol) (01/27/21 09:05) Ondansetron Injection (Zofran Injectio (01/27/21 09:15) Famotidine Injection (Pepcid Injection) (01/27/21 09:15) Cbc With Automated Diff (01/27/21 09:08) Comprehensive Metabolic Panel (01/27/21 09:08) Fibrin Degradation Products (01/27/21 09:08) Procalcitonin (Pct) (01/27/21 09:08) Hs C Reactive Protein (01/27/21 09:08) Chest 1 View, Ap/Pa Only (01/27/21 09:08) Lactic Acid Analyzer (01/27/21 09:08) Enoxaparin Injection (Lovenox Injection) (01/27/21 10:15) Medications Given in ED Current Medications Medications Dose Ordered Sig/Felecia Route Start Time Stop Time Status Last Admin Dose Admin Enoxaparin Sodium 80 mg ONCE ONCE SC 01/27/21 10:15 01/27/21 10:16 DC 01/27/21 11:06 80 MG Vital Signs/I&O 01/27/21 08:45 Temp 35.6 Pulse 93 Resp 16 B/P (MAP) 134/90 (105) Pulse Ox 98 O2 Delivery Nasal Cannula Capillary Refill : Less Than 3 Seconds Blood Pressure Mean: 105 Progress Note : Progress Note Patient finished a liter of IV fluids started by EMS. Zofran and Pepcid were given for further symptom control. Patient was not hypoxic but did need to continue the dexamethasone for her wheezing. An albuterol inhaler was also provided and used in the ER. Patient does not feel that she will be safe if she returns home as she is too weak. Her family is not present at home except for her son who is also sick with Covid. Diagnostic Imaging Diagonstic Imaging: Xray Plain Films/CT/US/NM/MRI: chest Comments NAME: MCKENZIE MORRIS MED REC#: [id number] PT STATUS: ADM IN : 1965 PHYSICIAN: MARCO A STONER MD ADMIT DATE: 01/27/21 Signed Date of Exam:01/27/21 CHEST 1 VIEW, AP/PA ONLY INDICATION: COVID COMPARISON: 01/30/2019 FINDINGS: There is a vague patchy bilateral mid to lower lung pulmonary opacities nonspecific but compatible with the provided history of COVID. No bronchograms. No effusion or pneumothorax. Impression: New patchy predominantly basilar and lower lung infiltrates slightly greater left consistent with nonspecific infectious etiologies. No failure, effusion or pneumothorax. Dictated by: Dictated on workstation # [id number] Dict: 01/27/21 1016 Trans: 01/27/211641 [facility] [id number] Interpreted by: ALYSSA BRUMFIELD Electronically signed by: ALYSSA BRUMFIELD 01/27/212 Departure Communication (Admissions) Time/Spoke to Admitting Phy: 10:29 Dr. Minaya Impression Primary Impression: Acute kidney injury Additional Impressions: Nausea vomiting and diarrhea COVID-19 Elevated d-dimer Disposition: ADMITTED INPATIENT Condition: Improved Admissions Decision to Admit Reason: Admit from ER (General) Decision to Admit/Date: Jan 27, 2021 Time/Decision to Admit Time: 09:00 Departure-Patient Inst. Referrals: INES MINAYA MD (PCP/Family) Primary Care Physician MARCO A STONER MD Jan 27, 2021 10:33
--- NOTE | 2021-01-27 10:41 | Diagnostic Imaging Report ---
INDICATION: COVID COMPARISON: 01/30/2019 FINDINGS: There is a vague patchy bilateral mid to lower lung pulmonary opacities nonspecific but compatible with the provided history of COVID. No bronchograms. No effusion or pneumothorax. Impression: New patchy predominantly basilar and lower lung infiltrates slightly greater left consistent with nonspecific infectious etiologies. No failure, effusion or pneumothorax. Dictated by: Dictated on workstation # [id number]
[2021-01-27] MEDS ORDERED: ONDANSETRON 4 MG/2 ML (SDV) Z0FRAN IV PRN (12:15)
[2021-01-27] MEDS ORDERED: ACETAMINOPHEN 325 MG TABLET PO PRN (12:15)
[2021-01-27] MEDS ORDERED: ACETAMINOPHEN 650 MG SUPP (TYLENOL) PR PRN (12:15)
[2021-01-27] MEDS ORDERED: guaiFENesin SYRUP 100 MG/5 ML 10 ML (ROBITUSSIN SF) PO PRN (12:15)
[2021-01-27] MEDS ORDERED: RT-ALBUTEROL HFA 8.5 GM INHALER IH PRN (12:15)
[2021-01-27] MEDS: LACTATED RINGERS 1,000 ML IV SCH ×2 (12:39→21:43)
[2021-01-27 13:22] VITALS: BP 130/71
[2021-01-27] MEDS ORDERED: ASPI325T32 PO (15:40)
[2021-01-27] MEDS ORDERED: AZIT500T9 PO (15:40)
[2021-01-27] MEDS ORDERED: DEXA2TAB PO (15:40)
[2021-01-27 15:42] VITALS: BP 115/69
[2021-01-27] MEDS: RT-ALBUTEROL HFA 8.5 GM INHALER IH SCH ×2 (19:44→21:46)
[2021-01-27 20:00] VITALS: BP 114/60
[2021-01-27] MEDS: UMECLIDINIUM BROMIDE (INCRUSE ELLIPTA) 7'S IH SCH (21:46)
[2021-01-27] MEDS: LORazepam 0.5 MG (ATIVAN) TABLET PO PRN (21:57)
[2021-01-27] MEDS: ENOXAPARIN 80 MG/0.8 ML (LOVENOX) SYR SC SCH (21:57)
[2021-01-27 23:33] VITALS: BP 94/58
[2021-01-28] MEDS: LACTATED RINGERS 1,000 ML IV SCH ×4 (02:12→20:24)
[2021-01-28 03:08] VITALS: BP 102/64
[2021-01-28 06:02] LABS: POTASSIUM 4.4 MMOL/L (3.6-5.0)
[2021-01-28 06:03] LABS: CALCIUM 8.5 MG/DL (8.5-10.1)
[2021-01-28 06:08] LABS: CREATININE SERUM 0.86 MG/DL (0.60-1.30)
[2021-01-28] MEDS: RT-ALBUTEROL HFA 8.5 GM INHALER IH SCH ×4 (07:49→18:06)
[2021-01-28] MEDS: UMECLIDINIUM BROMIDE (INCRUSE ELLIPTA) 7'S IH SCH (07:50)
[2021-01-28 07:58] VITALS: BP 120/77
[2021-01-28] MEDS: ENOXAPARIN 80 MG/0.8 ML (LOVENOX) SYR SC SCH ×2 (08:43→20:24)
[2021-01-28] MEDS: AZITHROMYCIN 250 MG TAB (ZITHROMAX) PO SCH (08:43)
--- NOTE | 2021-01-28 10:20 | Pulmonary Consultation ---
History of Present Illness History of Present Illness Date Seen by Provider: Jan 28, 2021 Time Seen by Provider: 10:18 Date of Admission This 55-year-old woman who presents to the emergency room with progressive symptoms of COVID-19 infection. She has been ill for about 9 days. She tested positive last . She has been struggling with significant vomiting and diarrhea. She feels dehydrated and weak. She reports she is not able to safely stand on her own at this time. She used to the drive-through testing site in [place] and was prescribed dexamethasone and a azithromycin by the supervising physician. She is notably wheezing on assessment. She reports pleuritic chest pain and mild SOB. she feels very tired; Allergies and Home Medications Allergies Coded Allergies: No Known Drug Allergies (Unverified , 09/10/14) Home Medications Aspirin 325 Mg Tablet.dr, 325 MG PO DAILY, (Reported) Azithromycin 500 Mg Tablet, 500 MG PO DAILY, (Reported) FILLED 01-26-2021 #10/10 DAY SUPPLY Dexamethasone 2 Mg Tablet, 2 MG PO TID, (Reported) FILLED 01-26-2021 #30 Past Medical/Social/Family Hx Patient Social History Tobacco Use?: Yes Tobacco type used: Cigarettes Smoking Status: Current Everyday Smoker Use of E-Cig and/or Vaping dev: No Substance use?: No Alcohol Use?: No Pt stated abuse/neglect: No Immunizations Up To Date Influenza Vaccine Up-to-Date: No; Not Current Tetanus Booster (TDap): Unknown Hepatitis A: No Hepatitis B: No TB Skin Test: None Current Status status: No status: No Advance Directives: No Advance Directive Location: Home Communicates: Verbally Primary Language: Emirati Preferred Spoken Language: Emirati Is interpretation needed?: No Implanted or Applied Medical D: Pacemaker Review of Systems Constitutional: see HPI Sepsis Event Evaluation Height, Weight, BMI Height: 5'5.00" Weight: 195lbs. 0.0oz. 88.268985fv; 30.48 BMI Method:Stated Exam Exam Patient acknowledged, consented, and participated in this virtual visit which was conducted using real time audio/video Vital Signs Date Time Temp Pulse Resp B/P (MAP) Pulse Ox O2 Delivery O2 Flow Rate FiO2 01/28/21 08:00 96 Room Air 01/28/21 07:58 37.2 84 20 120/77 (91) 95 Room Air 01/28/21 07:49 96 Room Air 01/28/21 03:08 36.8 75 18 102/64 (77) 95 Room Air 01/27/21 23:33 36.5 81 18 94/58 (70) 98 Room Air 01/27/21 21:26 97 Room Air 01/27/21 20:00 36.1 78 20 114/60 (78) 95 Room Air 01/27/21 20:00 96 Room Air 01/27/21 19:44 95 Room Air 01/27/21 19:39 95 Room Air 01/27/21 15:42 37.0 90 18 115/69 (84) 97 Room Air 01/27/21 13:22 36.0 91 20 130/71 (90) 96 Room Air 01/27/21 12:41 Room Air 01/27/21 11:12 84 16 91/56 94 Room Air I & O 01/28/21 07:00 Intake Total 1520 ml Balance 1520 ml Height & Weight Height: 5'5.00" Weight: 195lbs. 0.0oz. 88.791895ar; 30.48 BMI Method:Stated General Appearance: WD/WN, Mild Distress HEENT: PERRL/EOMI, Normal ENT Inspection, Other (Oropharynx somewhat dry) Neck: Normal Inspection Respiratory: Lungs Clear, No Accessory Muscle Use, No Respiratory Distress, Decreased Breath Sounds, Wheezing Cardiovascular: Regular Rate, Rhythm, No Edema, No Murmur Capillary Refill: Less Than 3 Seconds Extremity: Normal Inspection, No Pedal Edema Neurologic/Psychiatric: Alert, Oriented x3, No Motor/Sensory Deficits, Normal Mood/Affect, sail repairer II-XII Norm as Tested Skin: Normal Color, Warm/Dry Results Lab Laboratory Tests 01/27/21 08:55 01/28/21 05:28 Assessment/Plan Assessment/Plan COVID 19 -steroids dexa/ lovenox -pt on ra -cxray shows lll haziness; atelectasis vs pna; we will checl procal and lactic acid/ consider empiric abx if procal elevated -trend d dime: if the d dimer are increasing we will advise VTE work up. JAVIER DAVIDSON MD Jan 28, 2021 10:20
[2021-01-28 11:38] VITALS: BP 116/61
[2021-01-28] MEDS ORDERED: NS IV 500 ML 500 ML ONE (11:54)
[2021-01-28] MEDS ORDERED: NS IV 500 ML 500 ML IV ONE ×3 (12:15→22:30)
[2021-01-28 15:49] VITALS: BP 101/53
[2021-01-28 17:06] LABS: CREATINE KINASE 56 U/L (29-168)
--- NOTE | 2021-01-28 17:44 | History & Physical ---
History of Present Illness History of Present Illness Reason for visit/HPI PT IS A 55 Y/O FEMALE WHO IS A PATIENT WHO HAS NOT BEEN IN MY OFFICE FOR THE PAST TWO YEARS. SHE WAS DIAGNOSED WITH COVID SEVERAL DAYS AGO IN A DRIVE THROUGH CLINIC, THEY TRIED TO CONVINCE HER TO GET THE MONOCLONAL ANTIBODY AND SHE REFUSED THE TREATMENT RECOMMENDATION. SHE HAS HAD FATIGUE, WEAKNESS, AND CANNOT CARE FOR HERSELF AT HOME AND HER SON IS ALSO SICK AND CAN'T CARE FOR HER EITHER. Date of Admission Jan 27, 2021 at 11:06 Date Seen by a Provider: Jan 27, 2021 Time Seen by a Provider: 20:00 I consulted on this patient on 01/28/21 17:39 Attending Physician Ines Minaya MD Admitting Physician Ines Minaya MD Consult Allergies and Home Medications Allergies Coded Allergies: No Known Drug Allergies (Unverified , 09/10/14) Home Medications Aspirin 325 Mg Tablet.dr, 325 MG PO DAILY, (Reported) Last Action: Held Azithromycin 500 Mg Tablet, 500 MG PO DAILY, (Reported) FILLED 01-26-2021 #10/10 DAY SUPPLY Last Action: Held Dexamethasone 2 Mg Tablet, 2 MG PO TID, (Reported) FILLED 01-26-2021 #30 Last Action: Held Patient Home Medication List Home Medication List Reviewed: Yes Past [id number]-[id number]-[id number] Hx Patient Social History Marrital Status: Living Status: LIVES AT HOME WITH SPOUSE Employed/Student: unemployed Tobacco Use?: Yes Tobacco type used: Cigarettes Smoking Status: Current Everyday Smoker Use of E-Cig and/or Vaping dev: No Substance use?: No Alcohol Use?: No Pt feels they are or have been: No Immunizations Up To Date Tetanus Booster (TDap): Unknown Hepatitis A: No Hepatitis B: No PED Vaccines UTD: No Seasonal Allergies Seasonal Allergies: Yes Current Status status: No status: No Advance Directives: No Advance Directive Location: Home Communicates: Verbally Primary Language: Serbian Preferred Spoken Language: Serbian Is interpretation needed?: No Implanted or Applied Medical D: Pacemaker Past Medical History Surgeries: Appendectomy, Section, Hysterectomy Currently Using CPAP: No Currently Using BIPAP: No High Cholesterol, Hypertension, Irregular Heartbeat Stroke Sexually Transmitted Disease: No HIV/AIDS: No Arthritis, Rheumatoid Arthritis Uterine Did You Recieve Any Treatments: Yes What Type of Treatment Did You: Surgical Intervention Sleep Difficulties, Depression Blood Disorders: No Adverse Reaction/Blood Tranf: No Family Medical History Reviewed and Corrections made Hypertension Review of Systems Constitutional: No chills, No fever; malaise, weakness EENTM: No hoarseness, No throat pain Respiratory: cough; No dyspnea on exertion, No short of breath Cardiovascular: No chest pain, No palpitations Gastrointestinal: No abdominal pain; diarrhea Genitourinary: no symptoms reported Musculoskeletal: no symptoms reported Skin: no symptoms reported Psychiatric/Neurological: Anxiety; Denies Paresthesia, Denies Pre-Existing Deficit; Weakness All Other Systems Reviewed Negative Unless Noted: Yes Physical Exam Vital Signs Vital Signs - First Documented 01/27/21 08:45 Temp 35.6 Pulse 93 Resp 16 B/P (MAP) 134/90 (105) Pulse Ox 98 O2 Delivery Nasal Cannula Capillary Refill : Less Than 3 Seconds Height, Weight, BMI Height: 5'5.00" Weight: 195lbs. 0.0oz. 88.434161dz; 30.48 BMI Method:Stated General Appearance: No Apparent Distress, WD/WN Eyes: Bilateral Eye Normal Inspection, Bilateral Eye PERRL, Bilateral Eye EOMI HEENT: PERRL/EOMI, Pharynx Normal Neck: Full Range of Motion, Non Tender, Supple Respiratory: Chest Non Tender, Decreased Breath Sounds (IN BASES) Cardiovascular: Regular Rate, Rhythm, No Murmur Gastrointestinal: Normal Bowel Sounds, No Organomegaly, No Pulsatile Mass, Non Tender, Soft Rectal: Deferred Back: Normal Inspection, No Vertebral Tenderness Extremity: Normal Capillary Refill, Normal Inspection, Normal Range of Motion, Non Tender, No Calf Tenderness, No Pedal Edema Neurologic/Psychiatric: Alert, Oriented x3, No Motor/Sensory Deficits, Normal Mood/Affect, metal sorter II-XII Norm as Tested Skin: Normal Color, Warm/Dry Lymphatic: No Adenopathy Assessment/Plan Assessment and Plan COVID -19 INFECTION WEAKNESS SHORTNESS OF BREATH COUGH ACUTE RENAL INSUFFICIENCY DEHYDRATION ELEVATED CRP MILDLY ELEVATED DDIMER COVID -19 INFECTION WITH WEAKNESS AND SHORTNESS OF BREATH AND COUGH - PT ADMITTED FOR COVID - STARTED ON IV ANTIBIOTICS, IV FLUIDS, MONITOR SERIAL LABS, - SUPPORTIVE CARE, MAY NEED ABOUT 2 DAYS IN HOSPITAL FOR STABILIZATION ACUTE RENAL INSUFFICIENCY - IV FLUIDS, MONITOR LABS AND OUTPUT DEHYDRATION - IV FLUIDS, MONITOR ELECTROLYTE ELEVATED CRP MILDLY ELEVATED DDIMER - LOVENOX, MONITOR SYMPTOMS AND REPEAT DDIMER LOVENOX FOR DVT PROPHYLAXIS Admission Diagnosis COVID -19 INFECTION WEAKNESS SHORTNESS OF BREATH COUGH ACUTE RENAL INSUFFICIENCY DEHYDRATION ELEVATED CRP MILDLY ELEVATED DDIMER Admission Status: Inpatient Order (span 2 midnights) Reason for Inpatient Admission: ANTICIPATE 2 MIDNIGHTS FOR FLUIDS, AND MONITORING OF COVID PT INES MINAYA MD Jan 28, 2021 17:44
--- NOTE | 2021-01-28 17:49 | Progress Note ---
Subjective Subjective Date Seen by Provider: Jan 28, 2021 Time Seen by Provider: 17:40 PT REPORTS THAT SHE IS FEELING BETTER, SHE STATES THAT SHE HAS SOME CHEST DISCOMFORT - WORSE WITH COUGH. Review of Systems General: No Chills; Fatigue; No Malaise HEENT: No Dysphasia, No Sore Throat Pulmonary: No Dyspnea; Cough Cardiovascular: No: Chest Pain, Palpitations Gastrointestinal: No: Nausea, Abdominal Pain Genitourinary: No Dysuria Neurological: Weakness; No: Confusion All Other Systems Reviewed All Other Systems Reviewed: Yes Objective Exam Vital Signs Vital Signs Date Time Temp Pulse Resp B/P (MAP) Pulse Ox O2 Delivery O2 Flow Rate FiO2 01/28/21 15:49 36.5 87 20 101/53 (69) 98 Room Air 01/28/21 15:03 97 Room Air 01/28/21 11:38 37.5 80 24 116/61 (79) 94 Room Air 01/28/21 10:21 95 Room Air 01/28/21 08:00 96 Room Air 01/28/21 07:58 37.2 84 20 120/77 (91) 95 Room Air 01/28/21 07:49 96 Room Air 01/28/21 03:08 36.8 75 18 102/64 (77) 95 Room Air 01/27/21 23:33 36.5 81 18 94/58 (70) 98 Room Air 01/27/21 21:26 97 Room Air 01/27/21 20:00 36.1 78 20 114/60 (78) 95 Room Air 01/27/21 20:00 96 Room Air 01/27/21 19:44 95 Room Air 01/27/21 19:39 95 Room Air I & O 01/28/21 07:00 Intake Total 1520 ml Balance 1520 ml General Appearance: No Apparent Distress, WD/WN Eyes: Bilateral Eye Normal Inspection, Bilateral Eye PERRL, Bilateral Eye EOMI HEENT: PERRL/EOMI, Pharynx Normal Neck: Full Range of Motion, Non Tender, Supple Respiratory: Chest Non Tender, Decreased Breath Sounds (IN BASES) Cardiovascular: Regular Rate, Rhythm, No Murmur Gastrointestinal: Normal Bowel Sounds, No Organomegaly, No Pulsatile Mass, Non Tender, Soft Rectal: Deferred Back: Normal Inspection, No Vertebral Tenderness Extremity: Normal Capillary Refill, Normal Inspection, Normal Range of Motion, Non Tender, No Calf Tenderness, No Pedal Edema Neurologic/Psychiatric: Alert, Oriented x3, No Motor/Sensory Deficits, Normal Mood/Affect, snapper on II-XII Norm as Tested Skin: Normal Color, Warm/Dry Lymphatic: No Adenopathy Results Lab Laboratory Tests 01/28/21 05:28: D-Dimer 0.37, Sodium Level 143, Potassium Level 4.4, Chloride Level 110H, Carbon Dioxide Level 22, Anion Gap 11, Blood Urea Nitrogen 21H, Creatinine 0.86, Estimat Glomerular Filtration Rate 68, BUN/Creatinine Ratio 24, Glucose Level 92, Calcium Level 8.5, Procalcitonin 0.05 01/28/21 10:45: Lactic Acid Level 2.13*H 01/28/21 15:18: Lactic Acid Level 3.73*H 01/28/21 16:35: Total Creatine Kinase 56, Myoglobin 55.5, Troponin I < 0.028 Assessment/Plan Assessment/Plan Admission Dx COVID -19 INFECTION WEAKNESS SHORTNESS OF BREATH COUGH ACUTE RENAL INSUFFICIENCY DEHYDRATION ELEVATED CRP MILDLY ELEVATED DDIMER Assessment and Plan COVID -19 INFECTION WEAKNESS SHORTNESS OF BREATH COUGH ACUTE RENAL INSUFFICIENCY DEHYDRATION ELEVATED CRP MILDLY ELEVATED DDIMER PSEUDOSEIZURE CHEST PAIN FROM COSTOCHONDRITIS COVID -19 INFECTION WITH WEAKNESS AND SHORTNESS OF BREATH AND COUGH - PT ADMITTED FOR COVID - STARTED ON IV ANTIBIOTICS, IV FLUIDS, MONITOR SERIAL LABS, - SUPPORTIVE CARE - PT IS STATUS POST TIME FRAME FOR REMDESIVIR AND ACUTE RENAL INSUFFICIENCY - IV FLUIDS, MONITOR LABS AND OUTPUT DEHYDRATION - IV FLUIDS, MONITOR ELECTROLYTE ELEVATED CRP MILDLY ELEVATED DDIMER - LOVENOX, MONITOR SYMPTOMS - REPEAT DDIMER IS NEGATIVE. PSEUDOSEIZURE - SUPPORTIVE CARE AT THIS TIME. CHEST PAIN FROM COSTOCHONDRITIS - SUPPORTIVE CARE, MONITOR SYMPTOMS. LOVENOX FOR DVT PROPHYLAXIS Admission Dx COVID -19 INFECTION WEAKNESS SHORTNESS OF BREATH COUGH ACUTE RENAL INSUFFICIENCY DEHYDRATION ELEVATED CRP MILDLY ELEVATED DDIMER Clinical Quality Measures Admission Status Admission Dx COVID -19 INFECTION WEAKNESS SHORTNESS OF BREATH COUGH ACUTE RENAL INSUFFICIENCY DEHYDRATION ELEVATED CRP MILDLY ELEVATED DDIMER INES GILMORE MD Jan 28, 2021 17:49
[2021-01-28] MEDS ORDERED: LORazepam INJ 2 MG/ML (ATIVAN) VIAL IVP ONE (18:00)
[2021-01-28] MEDS ORDERED: cefTRIAXone 1,000 MG in WATER (STERILE) FOR INJECTION 10 ML IV SCH (18:00)
[2021-01-28 18:04] LABS: AMPHETAMINE SCREEN, URINE NEGATIVE (NEGATIVE); BARBITURATE SCREEN URINE NEGATIVE (NEGATIVE); BENZODIAZEPINES SCREEN URINE NEGATIVE (NEGATIVE); CANNABINOID SCREEN, URINE NEGATIVE (NEGATIVE); COCAINE SCREEN URINE NEGATIVE (NEGATIVE); METHADONE STAT NEGATIVE (NEGATIVE); METHAMPHETAMINE SCREEN URINE S NEGATIVE (NEGATIVE); OPIATE SCREEN URINE NEGATIVE (NEGATIVE); OXYCODONE STAT NEGATIVE (NEGATIVE); PROPOXYPHENE STAT NEGATIVE (NEGATIVE); TRICYCLIC ANTIDEPRESSANTS SCRE NEGATIVE (NEGATIVE)
[2021-01-28 19:14] VITALS: BP 130/62
[2021-01-28] MEDS ORDERED: FUROSEMIDE 40 MG/4 ML INJ (LASIX) IVP ONE (22:30)
[2021-01-28] MEDS: LORazepam 0.5 MG (ATIVAN) TABLET PO PRN (23:01)
[2021-01-28 23:30] VITALS: BP 129/74
[2021-01-29 03:45] VITALS: BP 116/69
[2021-01-29] MEDS: LACTATED RINGERS 1,000 ML IV SCH ×2 (04:05→08:06)
[2021-01-29 04:35] LABS: HEMATOCRIT 34 % (35-52); HEMOGLOBIN 11.2 g/dL (11.5-16.0); MEAN CORPUSCULAR HEMOGLOBIN 30 pg (25-34); MEAN CORPUSCULAR HGB CONC 33 g/dL (32-36); MEAN CORPUSCULAR VOLUME 92 fL (80-99); MEAN PLATELET VOLUME 10.5 fL (9.0-12.2); PLATELET COUNT 139 10^3/uL (130-400); WHITE BLOOD COUNT 5.4 10^3/uL (4.3-11.0)
[2021-01-29 04:44] LABS: ALBUMIN 2.9 GM/DL (3.2-4.5); POTASSIUM 3.9 MMOL/L (3.6-5.0)
[2021-01-29 04:46] LABS: CALCIUM 7.8 MG/DL (8.5-10.1)
[2021-01-29 04:47] LABS: TOTAL PROTEIN 5.5 GM/DL (6.4-8.2)
[2021-01-29 04:49] LABS: BILIRUBIN,TOTAL 0.3 MG/DL (0.1-1.0)
[2021-01-29 04:51] LABS: CREATININE SERUM 0.72 MG/DL (0.60-1.30)
[2021-01-29] MEDS: UMECLIDINIUM BROMIDE (INCRUSE ELLIPTA) 7'S IH SCH (07:08)
[2021-01-29] MEDS: RT-ALBUTEROL HFA 8.5 GM INHALER IH SCH ×2 (07:08→10:57)
[2021-01-29 08:00] VITALS: BP 130/81
[2021-01-29] MEDS: AZITHROMYCIN 250 MG TAB (ZITHROMAX) PO SCH (10:28)
[2021-01-29] MEDS: ENOXAPARIN 80 MG/0.8 ML (LOVENOX) SYR SC SCH (10:28)
[2021-01-29 12:00] VITALS: BP 139/77
[2021-01-29] MEDS ORDERED: LACT1CAP87 PO (12:15)
[2021-01-29] MEDS ORDERED: GUAI100L13 PO (12:15)
[2021-01-29] MEDS ORDERED: ACET325T49 PO (12:15)
[2021-01-29] MEDS ORDERED: ALBU18HF2 INH (12:15)
[2021-01-29] MEDS ORDERED: CEFD300C3 PO (12:15)
--- NOTE | 2021-01-29 12:17 | D/C HH Face to Face Order ---
D/C Face to Face Orders Reconcile Patient Problems Problems Reviewed?: Yes Instructions for Patient Via [facility] options[employer]press, Patient Instructions/FollowUp: [address] [facility] Physician to follow Patient: surekha Discharge Diet for Home: Regular Diet Patient Problems: COVID -19 INFECTION WEAKNESS SHORTNESS OF BREATH COUGH ACUTE RENAL INSUFFICIENCY DEHYDRATION ELEVATED CRP MILDLY ELEVATED DDIMER Patient Data-Allergies,Ht & Wt Patient Allergies: Coded Allergies: No Known Drug Allergies (Unverified , 09/10/14) Height (Feet): 5 Height (Inches): 5.00 Weight (Pounds): 195 Weight (Ounces): 0.0 Home Health Need/Face to Face Date of Face to Face: Jan 29, 2021 Clinical Findings: Generalized weakness and fatigue, Shortness of breath I have seen Pt [id number]: Yes Discharged To: Home Diagnosis/Conditions: COVID -19 INFECTION WEAKNESS SHORTNESS OF BREATH COUGH ACUTE RENAL INSUFFICIENCY DEHYDRATION ELEVATED CRP MILDLY ELEVATED DDIMER Patient is Homebound due to: Muscle weakness, Shortness of breath/distress Homebound Status Due to the above stated illness, injury or surgical procedure (medical condition or diagnosis) and associated clinical findings, the patient is homebound because of his/her inability to leave home except with aid of a supportive device and/or person AND leaving the home requires a considerable and taxing effort or is medically contraindicated. Pt req the following assistanc: [facility] Nursing Orders Home Health Services Order: Nursing Services, Physical Therapy-Evaluate & Treat Therapy Orders Therapy Orders: PT to assess for OT Therapy Specific Orders: Increase strength/endurance Certify Stmt I certify that this patient is under my care and that I, a nurse practitioner or a physician; a assistant track coach working with dc, had a face to face encounter that -fredo tan the physician face to face encounter requirements with this patient as dated. INES IRBY MD Jan 29, 2021 12:17
--- NOTE | 2021-01-29 12:38 | Discharge Summary ---
Diagnosis/Chief Complaint Date of Admission Jan 27, 2021 at 11:06 Date of Discharge Discharge Date: Jan 29, 2021 Discharge Time: 1330 Admission Diagnosis Admission Diagnosis COVID -19 INFECTION WEAKNESS SHORTNESS OF BREATH COUGH ACUTE RENAL INSUFFICIENCY DEHYDRATION ELEVATED CRP MILDLY ELEVATED DDIMER Discharge Diagnosis COVID -19 INFECTION WEAKNESS SHORTNESS OF BREATH COUGH ACUTE RENAL INSUFFICIENCY DEHYDRATION ELEVATED CRP MILDLY ELEVATED DDIMER PSEUDOSEIZURE CHEST PAIN FROM COSTOCHONDRITIS Reason Hospital Visit PT IS A 55 Y/O FEMALE WHO IS A PATIENT WHO HAS NOT BEEN IN MY OFFICE FOR THE PAST TWO YEARS. SHE WAS DIAGNOSED WITH COVID SEVERAL DAYS AGO IN A DRIVE THROUGH CLINIC, THEY TRIED TO CONVINCE HER TO GET THE MONOCLONAL ANTIBODY AND SHE REFUSED THE TREATMENT RECOMMENDATION. SHE HAS HAD FATIGUE, WEAKNESS, AND CANNOT CARE FOR HERSELF AT HOME AND HER SON IS ALSO SICK AND CAN'T CARE FOR HER EITHER. Discharge Summary Discharge Physical Examination Allergies: Coded Allergies: No Known Drug Allergies (Unverified , 09/10/14) Vitals & I&Os Vital Signs Date Time Temp Pulse Resp B/P (MAP) Pulse Ox O2 Delivery O2 Flow Rate FiO2 01/29/21 10:57 96 Room Air 01/29/21 08:00 37.0 92 22 130/81 (97) General Appearance: Alert, Oriented X3, Cooperative, No Acute Distress HEENT: Atraumatic, PERRLA, Mucous Memb Moist/[place] Respiratory: Normal Air Movement (WITH RHONCHI IN BASES - CLEARS WITH COUGH) Cardiovascular: Regular Rate, Normal S1, Normal S2 Abdominal: Normal Bowel Sounds, Soft, No Tenderness Extremities: No Clubbing, No Cyanosis Skin: No Rashes, No Breakdown Neuro: Normal Speech, Strength at 5/5 X4 Ext, Cranial Nerves 3-12 NL Psych/Mental Status: Mental Status NL, Mood NL Hospital Course Was the Problem List Reviewed?: Yes COVID -19 INFECTION WEAKNESS SHORTNESS OF BREATH COUGH ACUTE RENAL INSUFFICIENCY DEHYDRATION ELEVATED CRP MILDLY ELEVATED DDIMER PSEUDOSEIZURE CHEST PAIN FROM COSTOCHONDRITIS COVID -19 INFECTION WITH WEAKNESS AND SHORTNESS OF BREATH AND COUGH - PT ADMITTED FOR COVID - STARTED ON IV ANTIBIOTICS, IV FLUIDS, MONITOR SERIAL LABS, - SUPPORTIVE CARE - PT IS STATUS POST TIME FRAME FOR REMDESIVIR AND ACUTE RENAL INSUFFICIENCY - IV FLUIDS, MONITOR LABS AND OUTPUT DEHYDRATION - IV FLUIDS, MONITOR ELECTROLYTE ELEVATED CRP MILDLY ELEVATED DDIMER - LOVENOX, MONITOR SYMPTOMS - REPEAT DDIMER IS NEGATIVE. PSEUDOSEIZURE - SUPPORTIVE CARE AT THIS TIME. CHEST PAIN FROM COSTOCHONDRITIS - SUPPORTIVE CARE, MONITOR SYMPTOMS. DISCHARGE TO HOME WITH HOME HEALTH I CALLED AND LET HER KNOW THAT SHE WOULD BE DISCHARGED TODAY WILL BE ON AZITHROMYCIN, CEFDINIR, DEXAMETHASONE ON DC WITH ALBUTEROL FOR INHALER Discharge Condition at discharge IMPROVED Instructions to patient/family Please see electronic discharge instructions given to patient. Discharge Medications Reviewed and agree with Discharge Medication list on patient's Discharge Instruction sheet INES GILMORE MD Jan 29, 2021 12:38
--- NOTE | 2021-01-29 15:35 | Physician Query Clarification ---
Physician Query-General Query to Physician: The medical record reflects the following clinical evidence: Clinical Indicators: Per Chest X-ray "New patchy predominantly basilar and lower lung infiltrates slightly greater left consistent with nonspecific infectious etiologies". SOA at rest per Nursing, Cough, Risk Factor(s): Covid 19, Smoker, Treatment: Albuterol, Dexamethasone IV, Ceftriaxone, LR, Azithromycin PO, 1. Pneumonia due to coronavirus disease 2018 2. Other explanation of clinical findings 3. Unable to determine (no explanation for clinical findings) Please clarify and document your clinical opinion in the progress notes and discharge summary including the definitive and/or presumptive diagnosis, (suspected or probable), related to the above clinical findings. Please include clinical findings supporting your diagnosis. Jo-Ann Estevez MSN, RN Clinical Process Planner [phone] [email or web address] PHYSICIAN RESPONSE: Based on the clinical findings in the record, please respond to the query above on this document as an addendum. Physician Response: Physician Response PNEUMONIA DUE TO COVID If you have questions please contact: Resizer Operator: Ext: Thank you for your time and cooperation. Clinical Process Planner/Resizer Operator This is a permanent part of the medical record JO-ANN ESTEVEZ Jan 29, 2021 15:35 INES GILMORE MD Feb 01, 2021 19:29
== END 2021-01-29 13:10 | disposition home health service (06) | DRG 177 ==
LOC: EDUNIT# 08:45 → ER 08:47 → 4TH 11:06
PROVIDERS: ADMIT Family Medicine; ATTEND Family Medicine
DX: U07.1 COVID-19 (principal); J12.82 Pneumonia due to coronavirus disease 2019; N28.9 Disorder of kidney and ureter, unspecified; R11.2 Nausea with vomiting, unspecified; R19.7 Diarrhea, unspecified; M94.0 Chondrocostal junction syndrome [Tietze]; R56.9 Unspecified convulsions; E78.00 Pure hypercholesterolemia, unspecified; I10 Essential (primary) hypertension; E86.0 Dehydration; M19.91 Primary osteoarthritis, unspecified site; M06.9 Rheumatoid arthritis, unspecified; F17.210 Nicotine dependence, cigarettes, uncomplicated; F32.9 Major depressive disorder, single episode, unspecified; Z79.82 Long term (current) use of aspirin; Z85.42 Personal history of malignant neoplasm of other parts of uterus; Z95.0 Presence of cardiac pacemaker; Z73.0 Burn-out
CPT/HCPCS: 36415; 71045; 80048; 80053; 80306; 82550; 83605; 83874; 84145; 84484; 85025; 85027; 85379; 86141; 93005; 94640; 94664; 94760

== ENCOUNTER 2021-03-03 11:00 | Day surgery (SDC) | payer MEDICARE ==
[~2021-03-03] VITALS: Ht 165.1 cm; Wt 85.4 kg
[2021-03-03 09:47] VITALS: BP 139/87
--- NOTE | 2021-03-03 09:55 | Diagnostic Imaging Report ---
INDICATION: Cardiac dysrhythmia AP view of the chest is obtained with comparison made to the study of 01/27/2021. Heart size and pulmonary vascularity are within normal limits. There is bilateral air trapping. Mildly prominent interstitial markings are noted in the lung bases. There is no evidence of significant change. There is a probable calcified granuloma in the right lung base. Left anterior chest wall dual-chamber cardiac pacemaker is in stable position without evidence of complication. IMPRESSION: Basilar interstitial markings may reflect edema or pneumonitis versus background scarring in patient with emphysema. Follow-up PA and lateral views of the chest could be performed for further assessment. Dictated by: Dictated on workstation # [id number]
[2021-03-03 10:00] LABS: HEMATOCRIT 39 % (35-52); MEAN CORPUSCULAR HEMOGLOBIN 31 pg (25-34); MEAN CORPUSCULAR HGB CONC 33 g/dL (32-36); MEAN CORPUSCULAR VOLUME 93 fL (80-99); MEAN PLATELET VOLUME 9.3 fL (9.0-12.2); PLATELET COUNT 272 10^3/uL (130-400); WHITE BLOOD COUNT 5.8 10^3/uL (4.3-11.0)
[2021-03-03 10:02] LABS: BILIRUBIN,URINE NEGATIVE (NEGATIVE); CLARITY,URINE CLEAR; COLOR,URINE YELLOW; GLUCOSE, URINE (UA) NEGATIVE (NEGATIVE); KETONES,URINE NEGATIVE (NEGATIVE); LEUKOCYTE ESTERASE ,URINE 1+ (NEGATIVE); NITRITE,URINE NEGATIVE (NEGATIVE); PROTEIN,URINE NEGATIVE (NEGATIVE)
[2021-03-03 10:20] LABS: ALBUMIN 3.7 GM/DL (3.2-4.5); BILIRUBIN,TOTAL 0.4 MG/DL (0.1-1.0); CALCIUM 9.6 MG/DL (8.5-10.1); CREATININE SERUM 0.78 MG/DL (0.60-1.30); TOTAL PROTEIN 6.7 GM/DL (6.4-8.2)
[2021-03-03 10:21] LABS: BACTERIA,URINE FEW /HPF; RBC,URINE RARE /HPF
[2021-03-03 10:22] LABS: INR 0.9 (0.8-1.4); PROTHROMBIN TIME PATIENT 12.5 SEC (12.2-14.7)
--- NOTE | 2021-03-03 10:52 | Conscious Sedation/ASA ---
Conscious Sedation Pre-Proced Time 10:52 ASA Score 3 For ASA 3 and 4: Consider anesthesia and medical clearance. Also, for patients with a history of failed moderate sedation consider anesthesia. Airway Lungs Heart ASA score ASA 1: a normal healthy patient ASA 2: a patient with a mild systemic disease (mid diabetes, controlled hypertension, obesity x ASA 3: a patient with a severe systemic disease that limits activity (angina, COPD, prior Myocardial infarction) ASA 4: a patient with an incapacitating disease that is a constant threat to life (CHF, renal failure) ASA 5: a moribund patient not expected to survive 24 hrs. (ruptured aneurysm) ASA 6: a declared brain- patient whose organs are being harvested. For emergent operations, add the letter E after the classification Mallampati Classification Grade 3 Sedation Plan Analgesia, Amnesia, Plan communicated to team members, Discussed options with patient/fam, Discussed risks with patient/fam The patient is an appropriate candidate to undergo the planned procedure, sedation, and anesthesia. The patient immediately re-assessed prior to indication. KIRK DANG MD Mar 03, 2021 10:52
[~2021-03-03 11:00] MED LIST changes: +ACET325T38 PO; +ACET325T49 PO; +ALBU18HF2 INH; +ASPI325T32 PO; +AZIT500T9 PO; +CANN100S PO; +CEFD300C3 PO; +DEXA2TAB PO; +GUAI100L13 PO; +HEParin (CATH LAB) 1,000 ML IV ONE; +LACT1CAP87 PO; +LIDOCAINE 1% INJ 20 ML 20 ML VIAL ONE; +MIDAZOLAM 5 MG/5 ML (VERSED) VIAL ONE; +MULT200T12 PO; +NFBIOT1000 PO; +NS (IVPB) 50 ML ONE; +NS IV 1000 ML 1,000 ML IV ONE; +NS IV 1000 ML 1,000 ML ONE; +QUET25TA PO; +ceFAZolin INJECTION 1,000 MG ONE; +ceFAZolin INJECTION 1,000 MG VIAL IV ONE; +fentaNYL INJ 100 MCG/2 ML AMP ONE
[2021-03-03] MEDS ORDERED: NS IV 500 ML 500 ML ONE (11:26)
--- NOTE | 2021-03-03 12:20 | Packmaker Change ---
Pacemaker Change Physician (s)/Skeins Yarn Examiner (s) Physician KIRK DANG MD Pre-Procedure Diagnosis Pre-Procedure Diagnosis: Sinus node dysfunction Post-Procedure Note Procedure Start Date: Mar 03, 2021 Name of Procedure: Dual-chamber pacemaker generator change Findings/Procedure Note 55-year-old lady with history of dual-chamber pacemaker due to sinus node dysfunction, had reached [facility], had her new generator replaced in 2011. Scheduled for pacemaker generator replacement. After explaining the procedure to the patient all pros and cons were explained all questions were answered patient signed a consent then she was placed on the cardiac catheterization laboratory. Using aseptic technique, skin incision was made and device was retrieved. Atrial and ventricular leads were inspected and appeared to be functioning normally. The pocket was irrigated with saline. New pacemaker Medtronic generator device was attached to the leads and tested to have good sensing and capture activity The device was placed in Tyrex patch. Device was placed in the pocket and pocket was closed on 2 layers of suture with no complication. Device information: [employer] Akilah XT DR MRI Serial number [id number] Atrial lead St Ej implanted on March 07, 2000 Serial [id number] Ventricular lead St Ej implanted on March 07, 2000 Serial [id number] Anesthesia Type: Conscious Sedation Estimated blood loss (mL): 5 ml Contrast Amount: 0 ml Post-Procedure Diagnosis Post-operative diagnosis: Sinus node dysfunction Cardiac pacemaker Hypertension Hyperlipidemia KIRK DANG MD Mar 03, 2021 12:20
[2021-03-03] MEDS ORDERED: CEFU500T63 PO (12:21)
--- NOTE | 2021-03-03 12:21 | Discharge Inst-Post CATH ---
Discharge Inst-CATH/EP Problems Reviewed?: Yes Post Cardiac Cath/EP D/C Inst Follow Up/Plan Appointment with Dr. Ibarra's office in 1 week <b>CARDIAC CATH/EP PROCEDURE DISCHARGE INSTRUCTIONS</b> ACTIVITY * Go Home directly and rest. * Limit activity of the leg (or wrist if it was used) for 7 days including aerobics, swimming, jogging, bicycling, etc. * Restrict stair-climbing for 7 days if possible, if not, climb up with your non-cath leg, then bring together on the same step. * Avoid lifting, pushing, pulling or excessive movement of the affected extremity for 7 days. * Customary sexual activity may be resumed after 2 days-use caution not to use a position that strains or causes pain to the affected extremity. * No driving for 24 hours. * NO SMOKING. * Avoid straining for bowel movements for 7 days. * Gentle walking on level ground is allowed. * Returning to work will depend on the type of procedure and the results. Your doctor will discuss this with you. CALL YOUR DOCTOR FOR ANY OF THE FOLLOWING: *If bleeding from the puncture site occurs- Apply gentle pressure to site with clean cloth and call your doctor or EMS. * If a knot or lump forms under the skin, increases in size, or causes pain. * If bruising appears to be worsening or moving further down your leg instead of disappearing. * Temperature above 101 F. CARE OF YOUR GROIN INCISION; * Bruising or purple discoloration of the skin near the puncture site is common. * You may shower only, no bathtub bathing for 5 days. Be careful to avoid slipping as your leg may feel stiff. * If a closure device was used on your femoral artery, please see the attached guide regarding care of the device and your leg. * Leave dressing on FOR 24 hours. CARE OF YOUR WRIST INCISION; * Bruising or purple discoloration of the skin near the puncture site is common. * You may shower. * DO NOT submerge wrist. * Leave dressing on FOR 24 hours. KIRK IBARRA MD Mar 03, 2021 12:21
[2021-03-03] MEDS ORDERED: PATIENT MAY USE OWN MEDS, ALL PO SCH (12:30)
[2021-03-03] MEDS ORDERED: NS IV 1000 ML 1,000 ML IV SCH (12:30)
[2021-03-03 12:58] VITALS: BP 122/80
[2021-03-03 13:04] VITALS: BP 129/89
[2021-03-03 13:15] VITALS: BP 140/87
[2021-03-03 13:30] VITALS: BP 128/66
[2021-03-03 13:45] VITALS: BP 115/70
== END 2021-03-03 15:40 | disposition home or self-care (01) ==
LOC: CATH 11:00 → CSD 13:17 → CATH 15:40
PROVIDERS: ATTEND Internal Medicine Cardiovascular Disease
DX: Z45.010 Encounter for checking and testing of cardiac pacemaker pulse generator [battery] (principal); I49.5 Sick sinus syndrome; E78.5 Hyperlipidemia, unspecified; I65.29 Occlusion and stenosis of unspecified carotid artery; I11.0 Hypertensive heart disease with heart failure; I50.9 Heart failure, unspecified; M06.9 Rheumatoid arthritis, unspecified; Z85.42 Personal history of malignant neoplasm of other parts of uterus; Z79.899 Other long term (current) drug therapy; Z79.82 Long term (current) use of aspirin; Z79.2 Long term (current) use of antibiotics; Z87.891 Personal history of nicotine dependence
CPT/HCPCS: 33228; 36415; 71045; 80053; 80061; 81000; 85027; 85610; 85730; 87081; 87088

== ENCOUNTER → 2021-11-29 | Outpatient (CLI) | payer MEDICARE ==
[~2021-11-29] MED LIST changes: +CATHETER FLUSH 10 ML SYR IV PRN; +CEFU500T63 PO; -HEParin (CATH LAB) 1,000 ML IV ONE; +IOHEXOL 350 MG/ML 100 ML (OMNIPAQUE 350) VIAL IV ONE; -LIDOCAINE 1% INJ 20 ML 20 ML VIAL ONE; -MIDAZOLAM 5 MG/5 ML (VERSED) VIAL ONE; -NS (IVPB) 50 ML ONE; +NS 100 ML (IVPB) BAG IV ONE; -NS IV 1000 ML 1,000 ML IV ONE; -NS IV 1000 ML 1,000 ML ONE; -ceFAZolin INJECTION 1,000 MG ONE; -ceFAZolin INJECTION 1,000 MG VIAL IV ONE; -fentaNYL INJ 100 MCG/2 ML AMP ONE
--- NOTE | 2021-11-29 15:19 | Diagnostic Imaging Report ---
REASON FOR EXAM: Right arm numbness. Carotid stenosis. History of uterine cancer. TIME OF EXAM: 11/29/2021 11:05 AM COMPARISON: None TECHNIQUE: Contrast-enhanced thin section helical images were obtained from the mediastinum to the sella with the bolus of contrast timed for the optimal opacification of the arterial structures of the neck per departmental CTA protocol. Postprocessing and retro-reconstruction with coronal and sagittal reformatted images of the angiographic views of the vessels were obtained and were reviewed. 3D reformatted images were generated on a separate workstation and were reviewed. Dose reduction techniques were utilized. FINDINGS: The visualized portions of the aortic arch demonstrate no evidence of aneurysm or dissection. The origin of the arch vessels is unremarkable. The brachiocephalic artery is normal in course and caliber. The right common carotid origin is unremarkable. The left subclavian artery is normal in course and caliber. Both common carotid arteries are normal in course and caliber. No evidence of stenosis or dissection in the bilateral common carotid arteries. There is atherosclerotic plaque at the bilateral carotid bulbs and proximal internal carotid arteries. No focal stenosis or dissection is seen in the bilateral internal carotid arteries. The external carotid arteries are visualized and are patent. There is narrowing of the proximal left external carotid artery of approximately 70%. 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 A small amount of reconstitution of flow is seen in the right vertebral artery at the C2-C3 level. The left vertebral origin is off the left subclavian artery. There is calcified atherosclerotic plaque at the ostia of the left vertebral artery resulting in 70% stenosis. The remainder of the left vertebral artery is widely patent. No evidence of dissection in the left vertebral artery. The osseous structures of the cervical spine are unremarkable. Included views through the lung apices demonstrate no focal consolidation. Included views through the intracranial structures demonstrate no acute abnormalities. IMPRESSION: 1. 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 There is a small amount of reconstitution of flow via retrograde flow beginning at the C2-C3 level. 2. 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 The remainder of the left vertebral artery is widely patent. 3. No focal stenosis or dissection is seen in the bilateral common and internal carotid arteries. Dictated by: Dictated on workstation # [id number]
== END ==
LOC: RAD 10:41
PROVIDERS: ATTEND Physician Assistant
DX: I65.23 Occlusion and stenosis of bilateral carotid arteries (principal); Z85.42 Personal history of malignant neoplasm of other parts of uterus
CPT/HCPCS: 70498

== ENCOUNTER → 2023-02-08 | Outpatient (CLI) | payer MEDICARE ==
[~2023-02-08] MED LIST changes: -CATHETER FLUSH 10 ML SYR IV PRN; -IOHEXOL 350 MG/ML 100 ML (OMNIPAQUE 350) VIAL IV ONE; -NS 100 ML (IVPB) BAG IV ONE
--- NOTE | 2023-02-08 16:20 | Diagnostic Imaging Report ---
CT Lung Screening INDICATION:40 pack year smoking history, current smoker for baseline low-dose CT screening. TECHNIQUE: Noncontrast, low-dose CT imaging performed according to the lung cancer screening protocol. Auto Exposure Controls were utilize during the CT exam to meet ALARA standards for radiation dose reduction. COMPARISON:Baseline FINDINGS:No suspicious lung mass. No findings to suggest active lung cancer. There is no thoracic adenopathy. No chest effusion. Aorta nonaneurysmal. Pacemaker device present. No pleural or pericardial effusion. There is no pneumothorax. The visible upper abdomen nonacute IMPRESSION:No findings to suggest lung cancer or acute pathology, continued annual low-dose CT screening followup in one year's time recommended. LUNG-RADS CATEGORY:Category 1 MODIFIER:None OTHER SIGNIFICANT FINDINGS:None Dictated by: Dictated on workstation # [id number]
== END ==
LOC: RAD 11:41
PROVIDERS: ATTEND Nurse Practitioner Family
DX: Z12.2 Encounter for screening for malignant neoplasm of respiratory organs (principal); Z72.0 Tobacco use
CPT/HCPCS: 71271

== ENCOUNTER 2023-02-15 06:58 | Outpatient (CLI) | payer MEDICARE ==
[~2023-02-15] VITALS: Ht 165 cm; Wt 83.1 kg
[2023-02-15] MEDS ORDERED: ATOR10TA PO (14:58)
[2023-02-15] MEDS ORDERED: MELO15TA39 PO (14:58)
[2023-02-15] MEDS ORDERED: VIT1TAB.18 PO (14:58)
== END 2023-02-15 15:09 | disposition home or self-care (01) ==
LOC: PREOP 06:58
PROVIDERS: ATTEND Internal Medicine
DX: Z01.818 Encounter for other preprocedural examination (principal)

== ENCOUNTER 2023-02-24 07:46 | Day surgery (SDC) | payer MEDICARE ==
--- NOTE | 2023-02-15 09:00 | HISTORY AND PHYSICAL ---
COLONOSCOPY HISTORY AND PHYSICAL HISTORY OF PRESENT ILLNESS: The patient is a 57-year-old white female referred by Patty Evans APRN for her first screening colonoscopy. She is deemed to be of average risk because she is not aware of any family history for colon cancer. She denies bright red blood per rectum, melena, change in bowel habit or abdominal pain. PAST MEDICAL HISTORY: Significant for hyperlipidemia with no known history of coronary artery disease. 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 She does have a past history of uterine cancer diagnosed in 2018 with no evidence for recurrence. PAST SURGICAL HISTORY: Significant for total abdominal hysterectomy and bilateral salpingo-oophorectomy for uterine cancer. FAMILY HISTORY: Brother is living with lung cancer at the age of 76. SOCIAL HISTORY: The patient reports [id number] smoking history. She is actively trying to cut down and ultimately quit and is down to a pack that lasts for 3 days. Reports no alcohol consumption history. REVIEW OF SYSTEMS: CONSTITUTIONAL: Denies night sweats, chills, fever or change in weight. GASTROINTESTINAL: As noted in the HPI. PULMONARY: Denies cough, wheezing or shortness of breath. CARDIOVASCULAR: Denies dyspnea on exertion, orthopnea, PND, pedal edema or syncope. Denies chest pain. PHYSICAL EXAMINATION: GENERAL: Reveals a white female, appeared to be in no acute distress. VITAL SIGNS: Weight 193 pounds, blood pressure 122/84, BMI 32. HEENT: Unremarkable. Sclerae nonicteric. CHEST: Clear to auscultation. CARDIOVASCULAR: Reveals regular rate and rhythm without murmur, S3, or S4. ABDOMEN: Soft, supple without mass, organomegaly, or tenderness. EXTREMITIES: Revealed no cyanosis, clubbing or edema. ASSESSMENT AND PLAN: The patient is being set up for her first screening colonoscopy deemed to be of average risk. Prep instructions were given and questions were answered. I thank you for the referral of this pleasant lady. Job ID: [id number] DocumentID: [id number] Dictated Date: 02/13/2023 17:09:10 Parachute Harness Rigger Date: 02/13/2023 17:25:00 Dictated By: FELIPE RAE MD [facility]
[~2023-02-24] VITALS: Ht 165 cm; Wt 83.1 kg
[~2023-02-24 07:46] MED LIST changes: +VIT1TAB.18 PO
[2023-02-24] MEDS ORDERED: LACTATED RINGERS 1,000 ML 1,000 ML IV STA (07:55)
--- NOTE | 2023-02-24 08:28 | Pre-Op Note & Conscious Sedat ---
Pre-Operative Progress Note Date H&P Reviewed: Feb 24, 2023 Time H&P Reviewed: 08:27 History & Physical: H&P Reviewed, Patient Examed, No changes noted Pre-Op Diagnosis: screening Moderate Sedation PreProcedure ASA Score 2 Airway Lungs Heart ASA score ASA 1: a normal healthy patient ASA 2: a patient with a mild systemic disease (mid diabetes, controlled hypertension, obesity ASA 3: a patient with a severe systemic disease that limits activity (angina, COPD, prior Myocardial infarction) ASA 4: a patient with an incapacitating disease that is a constant threat to life (CHF, renal failure) ASA 5: a moribund patient not expected to survive 24 hrs. (ruptured aneurysm) ASA 6: a declared brain- patient whose organs are being harvested. For emergent operations, add the letter E after the classification Mallampati Classification Grade 2 Sedation Plan Analgesia, Amnesia, Plan communicated to team members, Discussed options with patient/fam, Discussed risks with patient/fam The patient is an appropriate candidate to undergo the planned procedure, sedation, and anesthesia. The patient immediately re-assessed prior to indication. FELIPE RAE MD Feb 24, 2023 08:28
[2023-02-24 08:30] VITALS: BP 139/82
--- NOTE | 2023-02-24 09:37 | Progress Note-Post Operative ---
Post-Procedure Note Physician (s)/Rickshaw Driver (s) Physician FELIPE RAE MD Pre-Procedure Diagnosis Pre-Procedure Diagnosis: screening Post-Procedure Diagnosis Post-operative diagnosis: Prior to undergoing colonoscopy digital rectal evaluation was performed. Anal suture tone was normal and the perianal reflexes intact. No abnormalities noted on digital inspection anal canal distal rectal vault. The colonoscope was then inserted into the rectum and under direct visitation advanced the cecum. The cecum was identified by identification of the ileocecal valve and the cecal strap. Photographic documentation was obtained. Quality the prep was fair. Findings: There was no evidence for internal or external hemorrhoids and the rectum was unremarkable. 1One 3 mm sessile hyperplastic appearing polyp was noted distal sigmoid colon was biopsied and ablated with no subsequent blood loss. Moderate diverticular disease was noted throughout the sigmoid colon and to a lesser extent the descending colon without evidence for diverticulitis. The splenic flexure transverse colon hepatic flexure ascending colon and cecum were unremarkable. Assessment: 1. One 3 mm sessile polyp was biopsied and cauterized from the distal sigmoid colon with no other evidence for neoplasia. As long as there are no surprises on histopathology would advocate repeat screening colonoscopy in 10 years. 2. Moderate diverticular disease was present sigmoid colon to a lesser extent the descending colon without evidence of diverticulitis. CC: Dr. Marisabel GILMORE MD. FELIPE RAE MD Feb 24, 2023 09:37
--- NOTE | 2023-02-24 09:38 | Anesthesia-General Post-Op ---
MAC Patient Condition Mental Status/LOC: Same as Preop Cardiovascular: Satisfactory Nausea/Vomiting: Absent Respiratory: Satisfactory Pain: Controlled Complications: Absent Post Op Complications Complications None Follow Up Care/Instructions Patient Instructions None needed. Anesthesiology Discharge Order Discharge Order Patient is doing well, no complaints, stable vital signs, no apparent adverse anesthesia problems. No complications reported per nursing. TED FORREST CRNA Feb 24, 2023 09:38
[2023-02-24 09:40] VITALS: BP 134/72
[2023-02-24 09:52] VITALS: BP 143/78
[2023-02-24 10:08] VITALS: BP 143/78
== END 2023-02-24 09:30 | disposition home or self-care (01) ==
LOC: ENDO 07:46
PROVIDERS: ATTEND Internal Medicine
DX: Z12.11 Encounter for screening for malignant neoplasm of colon (principal); K63.5 Polyp of colon; K57.30 Diverticulosis of large intestine without perforation or abscess without bleeding; F17.210 Nicotine dependence, cigarettes, uncomplicated

== ENCOUNTER → 2023-04-11 | Outpatient (CLI) | payer MEDICARE ==
--- NOTE | 2023-04-11 10:45 | Diagnostic Imaging Report ---
INDICATION: Postmenopausal screening. COMPARISON: None FINDINGS: AP Spine L1-L4: [BMD (g/cm2): 1.171] [T-Score: -0.2] [Z-Score: 0.3] [BMD Previous: NA] [BMD % Change: NA] LT Hip Neck: [BMD (g/cm2): 0.948] [T-Score: -0.6] [Z-Score: 0.2] LT Hip Total: [BMD (g/cm2):1.056] [T-Score:0.4] [Z-Score: 0.9] [BMD Previous: NA] [BMD % Change: NA] RT Hip Neck: [BMD (g/cm2):0.855] [T-Score:-1.3] [Z-Score:-0.5] RT Hip Total: [BMD (g/cm2):0.953] [T-score:-0.4] [Z-Score:0.1] [BMD Previous:NA] [BMD % Change:NA] *Indicates significant change from prior examination based on 95% confidence level. World Health Organization criteria for BMD interpretation classify patients as Normal (T-score at or above -1.0), Osteopenic (T-score between -1.0 and -2.5) or Osteoporotic (T-score at or below -2.5). LIMITATIONS AND MODIFICATION: None. FRACTURE RISK (FRAX SCORE): The ten year probability of (%): Major Osteoporotic Fracture: [9.2] Hip Fracture: [0.7] IMPRESSION: 1. Normal bone mineral density. 2. Baseline examination. 3. See below National Osteoporosis Foundation guidelines on when to potentially initiate pharmacologic therapy. Based on the National Osteoporosis Foundation Guidelines, pharmacologic treatment should be initiated in any of the following, unless clinical conditions suggest otherwise: * Any patient with prior fragility fracture of the hip or vertebrae. A spine fracture indicates 5X risk for subsequent spine fracture and 2X risk for subsequent hip fracture. * Osteoporosis (T-score <-2.5). * Postmenopausal women and men age 50 and older with low bone mass/osteopenia (T-score between -1.0 and -2.5) by DXA and 10-year major osteoporotic fracture greater than 20% or a 10-year probability of hip fracture greater than 3%. These fracture risks are supplied above in the FRAX score, if applicable. * Clinician judgement and/or patient preferences may indicate treatment for people with 10-year fracture probabilities above or below these levels. Dictated by: Dictated on workstation # [id number]
--- NOTE | 2023-04-11 14:21 | Diagnostic Imaging Report ---
INDICATION: Routine screening. No prior mammograms are available for comparison. 2-D and 3-D bilateral screening mammography was performed with CAD. Scattered fibroglandular densities are identified bilaterally. The parenchymal pattern is without evidence of discrete mass or malignant-appearing microcalcifications. Left axilla does contain a cardiac pacemaker battery pack. IMPRESSION: No mammographic features suspicious for malignancy are identified. ACR BI-RADS Category 1: Negative. Result letter will be mailed to the patient. Note: At least 10% of breast cancer is not imaged by mammography. BI-RADS Category 1 Dictated by: Dictated on workstation # [id number]
== END ==
LOC: RAD 08:53
PROVIDERS: ATTEND Obstetrics & Gynecology
DX: Z12.31 Encounter for screening mammogram for malignant neoplasm of breast (principal); Z13.820 Encounter for screening for osteoporosis
CPT/HCPCS: 77063; 77067; 77080

== ENCOUNTER → 2023-05-23 | Outpatient (CLI) | payer MEDICARE | LOC: CARD 08:51 | PROVIDERS: ATTEND Internal Medicine Cardiovascular Disease | DX: I11.0 Hypertensive heart disease with heart failure (principal); I50.20 Unspecified systolic (congestive) heart failure; I34.0 Nonrheumatic mitral (valve) insufficiency | CPT/HCPCS: 93306 ==